=== PATIENT | female | born 1950 | race African-American/Black ===

== ENCOUNTER 2017-10-28 18:53 | Inpatient (IN) ==
[2017-10-28 20:14] LABS: Basophils % 0.2 % (0.0-0.8); Eosinophils # 0.1 10*3/uL (0.0-0.87); Eosinophils % 1.9 % (0.00-10.9); Hematocrit 35.2 VOL% (35.7-47.0); Hemoglobin 11.2 GM/DL (12.0-16.0); Immature Granulocytes % 0.5 %; Immature Granulocytes Absolute 0.02 #; Lymphocytes # 0.7 10*3/uL (1.4-4.0); Lymphocytes % 16.6 % (21.3-54.2); Mean Corpuscular HGB Conc 31.8 GM/DL (32-36); Mean Corpuscular Hemoglobin 29 PG (27-34); Mean Corpuscular Volume 92.1 FL (87-102); Monocytes # 0.4 10*3/uL (0.11-0.8); Monocytes % 8.4 % (1.7-12.7); Neutrophils % 72.4 % (38.7-73.9); Platelet Count 178 T/CUMM (130-400); Red Blood Count 3.82 MC/CUMM (3.8-5.5); White Blood Count 4.2 T/CUMM (4-12)
[2017-10-28 20:43] LABS: Alanine Aminotransferase 21 U/L (13-56); Alkaline Phosphatase 108 U/L (45-117); Aspartate Amino Transferase 20 U/L (0-37); Bilirubin,Total < 0.39 MG/DL (0.2-1.0); Blood Urea Nitrogen 38 MG/DL (7-18); Calcium 7.4 MG/DL (8.5-10.1); Glucose 94 MG/DL (74-106); Osmolality,Calculated 294.8 MOS/KG (273-304); Potassium 3.4 MMOL/L (3.5-5.1); Sodium 144 MMOL/L (136-145); Total Protein 6.4 G/DL (6.4-8.3); Troponin I Only 0.034 NG/ML (0.00-0.045)
[2017-10-28] MEDS ORDERED: FUROSEMIDE 40 MG/4 ML VIAL IV STA (21:20)
[2017-10-28] MEDS ORDERED: FUROSEMIDE 40 MG/4 ML VIAL ONE (21:38)
[2017-10-28] MEDS ORDERED: ONDANSETRON 4 MG/2 ML VIAL IV PRN (21:55)
[2017-10-28] MEDS ORDERED: DEXTROSE 50% 25 GM/50 ML VIAL IV PRN (21:55)
[2017-10-28] MEDS ORDERED: GLUCAGON 1 MG VIAL IM PRN (21:55)
[2017-10-28] MEDS ORDERED: ACETAMINOPHEN 325 MG TABLET PO PRN (21:55)
[2017-10-28] MEDS ORDERED: MORPHINE 2 MG/1 ML SYRINGE IV PRN (21:55)
[2017-10-28] MEDS: glipiZIDE 5 MG TABLET PO SCH (22:30)
[2017-10-28] MEDS: PANTOPRAZOLE 40 MG TABLET PO SCH (22:30)
[2017-10-28] MEDS: CARVEDILOL 25 MG TABLET PO SCH (22:40)
[2017-10-29] MEDS: POTASSIUM CHLORIDE 20 MEQ TABLET PO SCH ×3 (01:08→21:13)
[2017-10-29 01:42] LABS: Apearance,Urine CLEAR (Clear); Bilirubin,Urine Negative (Negative); Blood, Urine Moderate mg/dL (Negative); Glucose,Urine (UA) Negative (Negative); Hyaline Casts,Urine 3 /LPF (0-3); Ketones,Urine Negative (Negative); Mucus,Urine Occasional /LPF (Occasional); Nitrite,Urine Negative (Negative); Protein,Urine 100 MG/DL; RBC,Urine 15 /HPF (0-4); Squamous Epithelial Cell,Urine Occasional /HPF (0-10); Urine Color Straw (Yellow); Urine Specific Gravity 1.008 (1.001-1.035); Urine Urobilinogen < 2.0 EU/DL (0.2-1.0); WBC,Urine 4 /HPF (0-6)
[2017-10-29] MEDS: NITROGLYCERIN SL 0.4 MG TABLET SL PRN ×2 (04:36→04:42)
[2017-10-29 04:54] LABS: Basophils % 0.3 % (0.0-0.8); Eosinophils # 0.1 10*3/uL (0.0-0.87); Eosinophils % 1.6 % (0.00-10.9); Hematocrit 33.6 VOL% (35.7-47.0); Hemoglobin 10.7 GM/DL (12.0-16.0); Immature Granulocytes % 0.3 %; Immature Granulocytes Absolute 0.01 #; Lymphocytes # 0.7 10*3/uL (1.4-4.0); Lymphocytes % 18.6 % (21.3-54.2); Mean Corpuscular HGB Conc 31.8 GM/DL (32-36); Mean Corpuscular Hemoglobin 29 PG (27-34); Mean Corpuscular Volume 91.3 FL (87-102); Mean Platelet Volume 11.2 FL (9.6-12.0); Monocytes # 0.4 10*3/uL (0.11-0.8); Monocytes % 9.9 % (1.7-12.7); Neutrophils # 2.5 10*3/uL (1.4-7.4); Neutrophils % 69.3 % (38.7-73.9); Platelet Count 148 T/CUMM (130-400); Red Blood Count 3.68 MC/CUMM (3.8-5.5); Red Cell Distribution Width 13.9 % (9.3-17.3); White Blood Count 3.7 T/CUMM (4-12)
[2017-10-29 05:27] LABS: Calcium 7.5 MG/DL (8.5-10.1); Osmolality,Calculated 293.8 MOS/KG (273-304); Potassium 3.6 MMOL/L (3.5-5.1)
[2017-10-29] MEDS: INSULIN LISPRO 100 UNIT/ML SUBCUT SCH ×4 (07:56→20:54)
[2017-10-29] MEDS ORDERED: FUROSEMIDE 40 MG/4 ML VIAL IV SCH (08:00)
[2017-10-29] MEDS: glipiZIDE 5 MG TABLET PO SCH ×2 (08:38→21:13)
[2017-10-29] MEDS: ISOSORBIDE MONONITRATE 30 MG TABLET PO SCH (08:38)
[2017-10-29] MEDS: CARVEDILOL 25 MG TABLET PO SCH ×2 (08:38→21:12)
[2017-10-29] MEDS: PANTOPRAZOLE 40 MG TABLET PO SCH ×2 (08:38→21:13)
[2017-10-29] MEDS ORDERED: amLODIPine 5 MG TABLET PO SCH (09:00)
[2017-10-29] MEDS ORDERED: PANTOPRAZOLE 40 MG TABLET PO SCH (09:00)
[2017-10-29] MEDS ORDERED: MAGNESIUM SULF RIDER 4 GM in PREMIX 1 EACH IV PRN (09:44)
[2017-10-29] MEDS ORDERED: MAGNESIUM SULF RIDER 2 GM in PREMIX 1 EACH IV PRN (09:44)
[2017-10-29 13:55] LABS: Troponin I Only 0.037 NG/ML (0.00-0.045)
[2017-10-29] MEDS: ASPIRIN EC 81 MG TABLET PO SCH (14:12)
[2017-10-29] MEDS: FUROSEMIDE 80 MG TABLET PO SCH (16:06)
[2017-10-29] MEDS: MAGNESIUM OXIDE 400 MG TABLET PO SCH ×2 (16:07→21:17)
[2017-10-29] MEDS: ATORVASTATIN 40 MG TABLET PO SCH (21:13)
[2017-10-29] MEDS: hydrALAZINE 25 MG TABLET PO SCH (21:13)
[2017-10-30] MEDS: MAGNESIUM OXIDE 400 MG TABLET PO SCH ×6 (02:25→20:43)
[2017-10-30 05:36] LABS: Basophils % 0.3 % (0.0-0.8); Eosinophils # 0.1 10*3/uL (0.0-0.87); Eosinophils % 1.8 % (0.00-10.9); Hematocrit 33.2 VOL% (35.7-47.0); Hemoglobin 10.3 GM/DL (12.0-16.0); Immature Granulocytes % 0.5 %; Immature Granulocytes Absolute 0.02 #; Lymphocytes # 0.7 10*3/uL (1.4-4.0); Lymphocytes % 17.7 % (21.3-54.2); Mean Corpuscular Hemoglobin 29 PG (27-34); Mean Corpuscular Volume 93.5 FL (87-102); Mean Platelet Volume 11.9 FL (9.6-12.0); Monocytes # 0.4 10*3/uL (0.11-0.8); Monocytes % 10.8 % (1.7-12.7); Neutrophils # 2.7 10*3/uL (1.4-7.4); Neutrophils % 68.9 % (38.7-73.9); Platelet Count 145 T/CUMM (130-400); Red Blood Count 3.55 MC/CUMM (3.8-5.5); Red Cell Distribution Width 13.8 % (9.3-17.3); White Blood Count 3.9 T/CUMM (4-12)
[2017-10-30 06:10] LABS: Calcium 7.4 MG/DL (8.5-10.1); Potassium 3.9 MMOL/L (3.5-5.1)
[2017-10-30 06:20] LABS: Risk Ratio 3.82; VLDL CHOLESTEROL 17.6 MG/DL
[2017-10-30] MEDS: INSULIN LISPRO 100 UNIT/ML SUBCUT SCH ×4 (07:29→20:44)
[2017-10-30] MEDS: CARVEDILOL 25 MG TABLET PO SCH ×2 (08:17→20:42)
[2017-10-30] MEDS: hydrALAZINE 25 MG TABLET PO SCH ×2 (08:18→20:43)
[2017-10-30] MEDS: ISOSORBIDE MONONITRATE 30 MG TABLET PO SCH (08:18)
[2017-10-30] MEDS: ASPIRIN EC 81 MG TABLET PO SCH (08:18)
[2017-10-30] MEDS: glipiZIDE 5 MG TABLET PO SCH (08:18)
[2017-10-30] MEDS: POTASSIUM CHLORIDE 20 MEQ TABLET PO SCH ×2 (08:18→20:42)
[2017-10-30] MEDS: metOLazone 5 MG TABLET PO SCH (08:18)
[2017-10-30] MEDS: PANTOPRAZOLE 40 MG TABLET PO SCH ×2 (08:18→20:43)
[2017-10-30] MEDS: FUROSEMIDE 80 MG TABLET PO SCH (08:18)
[2017-10-30] MEDS: FUROSEMIDE 20 MG TABLET PO SCH ×2 (15:02→20:43)
[2017-10-30] MEDS: ATORVASTATIN 40 MG TABLET PO SCH (21:13)
[2017-10-31] MEDS: MAGNESIUM OXIDE 400 MG TABLET PO SCH ×3 (00:42→09:03)
[2017-10-31 04:51] LABS: Basophils % 0.3 % (0.0-0.8); Eosinophils # 0.1 10*3/uL (0.0-0.87); Eosinophils % 1.3 % (0.00-10.9); Hematocrit 33.2 VOL% (35.7-47.0); Hemoglobin 10.5 GM/DL (12.0-16.0); Immature Granulocytes % 0.3 %; Immature Granulocytes Absolute 0.01 #; Lymphocytes # 0.8 10*3/uL (1.4-4.0); Lymphocytes % 21.1 % (21.3-54.2); Mean Corpuscular HGB Conc 31.6 GM/DL (32-36); Mean Corpuscular Hemoglobin 29 PG (27-34); Mean Corpuscular Volume 92.2 FL (87-102); Mean Platelet Volume 11.8 FL (9.6-12.0); Monocytes # 0.4 10*3/uL (0.11-0.8); Monocytes % 10.9 % (1.7-12.7); Neutrophils # 2.5 10*3/uL (1.4-7.4); Neutrophils % 66.1 % (38.7-73.9); Platelet Count 140 T/CUMM (130-400); Red Cell Distribution Width 13.6 % (9.3-17.3); White Blood Count 3.8 T/CUMM (4-12)
[2017-10-31 05:19] LABS: Calcium 7.7 MG/DL (8.5-10.1); Osmolality,Calculated 293.1 MOS/KG (273-304); Potassium 4.4 MMOL/L (3.5-5.1)
[2017-10-31] MEDS: INSULIN LISPRO 100 UNIT/ML SUBCUT SCH ×4 (08:56→20:55)
[2017-10-31] MEDS: ASPIRIN EC 81 MG TABLET PO SCH (09:03)
[2017-10-31] MEDS: FUROSEMIDE 20 MG TABLET PO SCH (09:03)
[2017-10-31] MEDS: CARVEDILOL 25 MG TABLET PO SCH ×2 (09:03→20:55)
[2017-10-31] MEDS: metOLazone 5 MG TABLET PO SCH (09:03)
[2017-10-31] MEDS: hydrALAZINE 25 MG TABLET PO SCH ×2 (09:03→20:55)
[2017-10-31] MEDS: PANTOPRAZOLE 40 MG TABLET PO SCH ×2 (09:03→20:55)
[2017-10-31] MEDS: ISOSORBIDE MONONITRATE 30 MG TABLET PO SCH (09:03)
[2017-10-31] MEDS: POTASSIUM CHLORIDE 20 MEQ TABLET PO SCH ×2 (09:07→20:55)
[2017-10-31] MEDS: DIPHENOXYLATE/ATROPINE 2.5-0.025 MG TABLET PO PRN (10:45)
[2017-10-31] MEDS ORDERED: MAGNESIUM OXIDE 400 MG TABLET PO SCH (13:00)
[2017-10-31] MEDS: FUROSEMIDE 80 MG TABLET PO SCH (15:56)
[2017-10-31] MEDS: ATORVASTATIN 40 MG TABLET PO SCH (20:55)
[2017-11-01 07:07] LABS: Basophils % 0.3 % (0.0-0.8); Eosinophils # 0.1 10*3/uL (0.0-0.87); Hematocrit 32.4 VOL% (35.7-47.0); Hemoglobin 10.5 GM/DL (12.0-16.0); Immature Granulocytes % 0.3 %; Immature Granulocytes Absolute 0.01 #; Lymphocytes # 0.6 10*3/uL (1.4-4.0); Lymphocytes % 19.1 % (21.3-54.2); Mean Corpuscular HGB Conc 32.4 GM/DL (32-36); Mean Corpuscular Hemoglobin 29 PG (27-34); Mean Corpuscular Volume 90.8 FL (87-102); Monocytes # 0.3 10*3/uL (0.11-0.8); Monocytes % 10.7 % (1.7-12.7); Neutrophils % 67.6 % (38.7-73.9); Platelet Count 136 T/CUMM (130-400); Red Blood Count 3.57 MC/CUMM (3.8-5.5); Red Cell Distribution Width 13.8 % (9.3-17.3)
[2017-11-01 07:44] LABS: Calcium 8.1 MG/DL (8.5-10.1); Osmolality,Calculated 292.3 MOS/KG (273-304); Potassium 5.1 MMOL/L (3.5-5.1)
[2017-11-01] MEDS: INSULIN LISPRO 100 UNIT/ML SUBCUT SCH ×4 (09:29→20:59)
[2017-11-01] MEDS: metOLazone 5 MG TABLET PO SCH (09:29)
[2017-11-01] MEDS: POTASSIUM CHLORIDE 20 MEQ TABLET PO SCH (09:30)
[2017-11-01] MEDS: FUROSEMIDE 80 MG TABLET PO SCH (09:30)
[2017-11-01] MEDS: ISOSORBIDE MONONITRATE 30 MG TABLET PO SCH (09:30)
[2017-11-01] MEDS: PANTOPRAZOLE 40 MG TABLET PO SCH ×2 (09:31→20:58)
[2017-11-01] MEDS: CARVEDILOL 25 MG TABLET PO SCH ×2 (09:31→20:58)
[2017-11-01] MEDS: ASPIRIN EC 81 MG TABLET PO SCH (09:31)
[2017-11-01] MEDS: hydrALAZINE 25 MG TABLET PO SCH ×2 (09:31→20:58)
[2017-11-01] MEDS ORDERED: MORPHINE 4 MG/1 ML VIAL IV PRN (11:17)
[2017-11-01] MEDS: FUROSEMIDE 100 MG/10 ML VIAL IV SCH (17:33)
[2017-11-01] MEDS: ATORVASTATIN 40 MG TABLET PO SCH (20:58)
[2017-11-02 06:02] LABS: Basophils % 0.3 % (0.0-0.8); Eosinophils # 0.1 10*3/uL (0.0-0.87); Eosinophils % 2.5 % (0.00-10.9); Hematocrit 32.5 VOL% (35.7-47.0); Hemoglobin 10.5 GM/DL (12.0-16.0); Immature Granulocytes % 0.3 %; Immature Granulocytes Absolute 0.01 #; Lymphocytes # 0.7 10*3/uL (1.4-4.0); Lymphocytes % 22.6 % (21.3-54.2); Mean Corpuscular HGB Conc 32.3 GM/DL (32-36); Mean Corpuscular Hemoglobin 30 PG (27-34); Mean Corpuscular Volume 91.8 FL (87-102); Mean Platelet Volume 12.2 FL (9.6-12.0); Monocytes # 0.3 10*3/uL (0.11-0.8); Monocytes % 10.5 % (1.7-12.7); Neutrophils % 63.8 % (38.7-73.9); Platelet Count 141 T/CUMM (130-400); Red Blood Count 3.54 MC/CUMM (3.8-5.5); Red Cell Distribution Width 13.6 % (9.3-17.3); White Blood Count 3.1 T/CUMM (4-12)
[2017-11-02 06:09] LABS: Calcium 8.1 MG/DL (8.5-10.1); Osmolality,Calculated 293.4 MOS/KG (273-304); Potassium 4.3 MMOL/L (3.5-5.1)
[2017-11-02] MEDS: metOLazone 5 MG TABLET PO SCH (07:34)
[2017-11-02] MEDS: PANTOPRAZOLE 40 MG TABLET PO SCH ×2 (08:21→20:32)
[2017-11-02] MEDS: hydrALAZINE 25 MG TABLET PO SCH ×2 (08:21→20:32)
[2017-11-02] MEDS: CARVEDILOL 25 MG TABLET PO SCH ×2 (08:21→20:32)
[2017-11-02] MEDS: ASPIRIN EC 81 MG TABLET PO SCH (08:21)
[2017-11-02] MEDS: ISOSORBIDE MONONITRATE 30 MG TABLET PO SCH (08:21)
[2017-11-02] MEDS: FUROSEMIDE 100 MG/10 ML VIAL IV SCH ×2 (08:21→15:56)
[2017-11-02] MEDS: INSULIN LISPRO 100 UNIT/ML SUBCUT SCH ×4 (08:24→20:32)
[2017-11-02] MEDS: DIPHENOXYLATE/ATROPINE 2.5-0.025 MG TABLET PO PRN (10:47)
[2017-11-02] MEDS: ATORVASTATIN 40 MG TABLET PO SCH (20:32)
[2017-11-03 07:04] LABS: Basophils % 0.3 % (0.0-0.8); Eosinophils # 0.1 10*3/uL (0.0-0.87); Eosinophils % 2.9 % (0.00-10.9); Hematocrit 31.5 VOL% (35.7-47.0); Immature Granulocytes % 0.3 %; Immature Granulocytes Absolute 0.01 #; Lymphocytes # 0.7 10*3/uL (1.4-4.0); Lymphocytes % 21.9 % (21.3-54.2); Mean Corpuscular HGB Conc 31.7 GM/DL (32-36); Mean Corpuscular Hemoglobin 29 PG (27-34); Mean Corpuscular Volume 92.6 FL (87-102); Mean Platelet Volume 12.1 FL (9.6-12.0); Monocytes # 0.4 10*3/uL (0.11-0.8); Monocytes % 11.9 % (1.7-12.7); Neutrophils % 62.7 % (38.7-73.9); Platelet Count 135 T/CUMM (130-400); Red Cell Distribution Width 13.8 % (9.3-17.3); White Blood Count 3.1 T/CUMM (4-12)
[2017-11-03 07:32] LABS: Osmolality,Calculated 293.3 MOS/KG (273-304); Potassium 4.1 MMOL/L (3.5-5.1)
[2017-11-03] MEDS: INSULIN LISPRO 100 UNIT/ML SUBCUT SCH ×4 (07:58→20:43)
[2017-11-03] MEDS: ISOSORBIDE MONONITRATE 30 MG TABLET PO SCH (08:59)
[2017-11-03] MEDS: metOLazone 5 MG TABLET PO SCH (08:59)
[2017-11-03] MEDS: FUROSEMIDE 100 MG/10 ML VIAL IV SCH ×2 (08:59→16:56)
[2017-11-03] MEDS: hydrALAZINE 25 MG TABLET PO SCH ×2 (08:59→20:43)
[2017-11-03] MEDS: CARVEDILOL 25 MG TABLET PO SCH ×2 (08:59→20:43)
[2017-11-03] MEDS: PANTOPRAZOLE 40 MG TABLET PO SCH ×2 (08:59→20:43)
[2017-11-03] MEDS: ASPIRIN EC 81 MG TABLET PO SCH (08:59)
[2017-11-03] MEDS: POTASSIUM CHLORIDE 20 MEQ TABLET PO SCH ×2 (09:07→20:43)
[2017-11-03] MEDS: ATORVASTATIN 40 MG TABLET PO SCH (20:43)
[2017-11-04 05:44] LABS: Calcium 8.2 MG/DL (8.5-10.1); Osmolality,Calculated 293.4 MOS/KG (273-304); Potassium 4.2 MMOL/L (3.5-5.1)
[2017-11-04 08:01] VITALS: BP 143/72
[2017-11-04] MEDS: hydrALAZINE 25 MG TABLET PO SCH (08:33)
[2017-11-04] MEDS: PANTOPRAZOLE 40 MG TABLET PO SCH (08:33)
[2017-11-04] MEDS: ISOSORBIDE MONONITRATE 30 MG TABLET PO SCH (08:33)
[2017-11-04] MEDS: ASPIRIN EC 81 MG TABLET PO SCH (08:33)
[2017-11-04] MEDS: POTASSIUM CHLORIDE 20 MEQ TABLET PO SCH (08:33)
[2017-11-04] MEDS: metOLazone 5 MG TABLET PO SCH (08:33)
[2017-11-04] MEDS: FUROSEMIDE 100 MG/10 ML VIAL IV SCH (08:33)
[2017-11-04] MEDS: CARVEDILOL 25 MG TABLET PO SCH (08:33)
[2017-11-04] MEDS: INSULIN LISPRO 100 UNIT/ML SUBCUT SCH (08:34)
[2017-11-04] MEDS ORDERED: MAGNESIUM OXIDE 400 MG TABLET PO ONE (11:00)
== END 2017-11-04 11:05 | disposition home or self-care (01) | DRG 291 ==
LOC: N.ED 18:53 → SUATTDRO 21:53 → N.EDINP 21:53 → N.2E 10-29 00:14
PROVIDERS: ADMIT Internal Medicine

== ENCOUNTER 2018-06-30 17:12 | Inpatient (IN) ==
[2018-06-30] MEDS ORDERED: FUROSEMIDE 100 MG/10 ML VIAL IV STA (18:09)
[2018-06-30 19:07] LABS: Basophils % 0.3 % (0.0-0.8); Eosinophils # 0.1 10*3/uL (0.0-0.87); Eosinophils % 2.3 % (0.00-10.9); Hematocrit 31.7 VOL% (35.7-47.0); Hemoglobin 9.9 GM/DL (12.0-16.0); Immature Granulocytes % 0.3 %; Immature Granulocytes Absolute 0.01 #; Lymphocytes # 0.6 10*3/uL (1.4-4.0); Lymphocytes % 15.6 % (21.3-54.2); Mean Corpuscular HGB Conc 31.2 GM/DL (32-36); Mean Corpuscular Hemoglobin 28 PG (27-34); Mean Corpuscular Volume 91.1 FL (87-102); Monocytes # 0.5 10*3/uL (0.11-0.8); Monocytes % 12.3 % (1.7-12.7); Neutrophils # 2.7 10*3/uL (1.4-7.4); Neutrophils % 69.2 % (38.7-73.9); Platelet Count 158 T/CUMM (130-400); Red Blood Count 3.48 MC/CUMM (3.8-5.5); Red Cell Distribution Width 14.5 % (9.3-17.3); White Blood Count 3.9 T/CUMM (4-12)
[2018-06-30 19:30] LABS: Alanine Aminotransferase 13 U/L (13-56); Albumin 2.9 G/DL (3.4-5.0); Alkaline Phosphatase 108 U/L (45-117); Aspartate Amino Transferase 21 U/L (0-37); Blood Urea Nitrogen 46 MG/DL (7-18); Glucose 96 MG/DL (74-106); Osmolality,Calculated 301.6 MOS/KG (273-304); Potassium 3.7 MMOL/L (3.5-5.1); Sodium 146 MMOL/L (136-145)
[2018-06-30 19:49] LABS: Calcium < 5.0 MG/DL (8.5-10.1)
[2018-06-30] MEDS ORDERED: ONDANSETRON 4 MG/2 ML VIAL IV PRN (20:23)
[2018-06-30] MEDS ORDERED: GLUCAGON 1 MG VIAL IM PRN (20:23)
[2018-06-30] MEDS ORDERED: DEXTROSE 50% 25 GM/50 ML VIAL IV PRN (20:23)
[2018-06-30] MEDS ORDERED: CALCIUM GLUCONATE 2,000 MG in SODIUM CHLORIDE 0.9% 100 ML IV ONE (23:39)
[2018-06-30] MEDS ORDERED: MAGNESIUM SULF RIDER 2 GM in PREMIX 1 EACH IV ONE (23:40)
[2018-07-01] MEDS: INSULIN LISPRO 100 UNIT/ML SUBCUT SCH ×4 (00:05→17:14)
[2018-07-01] MEDS: ALBUTEROL/IPRATROPIUM 3 ML NEB RESP TX SCH ×6 (02:20→23:50)
[2018-07-01] MEDS: HEPARIN 5,000 UNIT/1 ML VIAL SUBCUT SCH ×3 (02:50→17:42)
[2018-07-01 05:47] LABS: Basophils % 0.3 % (0.0-0.8); Eosinophils # 0.1 10*3/uL (0.0-0.87); Eosinophils % 3.6 % (0.00-10.9); Hematocrit 31.6 VOL% (35.7-47.0); Hemoglobin 9.5 GM/DL (12.0-16.0); Immature Granulocytes % 0.3 %; Immature Granulocytes Absolute 0.01 #; Lymphocytes # 0.7 10*3/uL (1.4-4.0); Lymphocytes % 19.9 % (21.3-54.2); Mean Corpuscular HGB Conc 30.1 GM/DL (32-36); Mean Corpuscular Hemoglobin 27 PG (27-34); Mean Corpuscular Volume 91.1 FL (87-102); Mean Platelet Volume 11.6 FL (9.6-12.0); Monocytes # 0.4 10*3/uL (0.11-0.8); Monocytes % 11.3 % (1.7-12.7); Neutrophils # 2.2 10*3/uL (1.4-7.4); Neutrophils % 64.6 % (38.7-73.9); Platelet Count 159 T/CUMM (130-400); Red Blood Count 3.47 MC/CUMM (3.8-5.5); Red Cell Distribution Width 14.6 % (9.3-17.3); White Blood Count 3.4 T/CUMM (4-12)
[2018-07-01 06:26] LABS: Blood Urea Nitrogen 42 MG/DL (7-18); Glucose 83 MG/DL (74-106); Osmolality,Calculated 295.8 MOS/KG (273-304); Potassium 3.2 MMOL/L (3.5-5.1); Sodium 144 MMOL/L (136-145)
[2018-07-01 06:28] LABS: Calcium < 5.0 MG/DL (8.5-10.1)
[2018-07-01] MEDS: POTASSIUM CHLORIDE 20 MEQ TABLET PO PRN ×4 (07:33→14:07)
[2018-07-01] MEDS ORDERED: FUROSEMIDE 40 MG/4 ML VIAL IV SCH (09:00)
[2018-07-01] MEDS ORDERED: BUMETANIDE 1 MG TABLET PO SCH (09:00)
[2018-07-01] MEDS: CARVEDILOL 3.125 MG TABLET PO SCH ×2 (10:03→20:57)
[2018-07-01] MEDS: ASPIRIN EC 81 MG TABLET PO SCH (10:03)
[2018-07-01] MEDS: COLESTIPOL 1 GM TABLET PO SCH ×2 (10:03→20:56)
[2018-07-01] MEDS: CALCIUM CARBONATE CHEW 500 MG TABLET PO SCH ×2 (10:03→20:56)
[2018-07-01] MEDS: PANTOPRAZOLE 40 MG TABLET PO SCH (10:04)
[2018-07-01] MEDS: FUROSEMIDE 40 MG/4 ML VIAL IV SCH ×2 (10:04→17:41)
[2018-07-01] MEDS ORDERED: MAGNESIUM SULF RIDER 2 GM in PREMIX 1 EACH IV ONE (15:09)
[2018-07-01] MEDS ORDERED: ERGOCALCIFEROL 50,000 UNIT CAPSULE PO SCH (15:30)
[2018-07-01] MEDS ORDERED: CALCIUM GLUCONATE 2,000 MG in SODIUM CHLORIDE 0.9% 100 ML IV ONE (17:00)
[2018-07-01] MEDS: ATORVASTATIN 40 MG TABLET PO SCH (20:56)
[2018-07-01] MEDS: hydrALAZINE 25 MG TABLET PO SCH (20:57)
[2018-07-01] MEDS ORDERED: amLODIPine 10 MG TABLET PO SCH (21:00)
[2018-07-01] MEDS ORDERED: DIPHENOXYLATE/ATROPINE 2.5-0.025 MG TABLET PO PRN (21:04)
[2018-07-02] MEDS: HEPARIN 5,000 UNIT/1 ML VIAL SUBCUT SCH ×3 (02:05→16:56)
[2018-07-02] MEDS: INSULIN LISPRO 100 UNIT/ML SUBCUT SCH ×5 (02:09→22:16)
[2018-07-02] MEDS: ALBUTEROL/IPRATROPIUM 3 ML NEB RESP TX SCH ×6 (03:40→23:45)
[2018-07-02 04:47] LABS: Basophils % 0.5 % (0.0-0.8); Eosinophils # 0.1 10*3/uL (0.0-0.87); Eosinophils % 3.5 % (0.00-10.9); Hematocrit 34.7 VOL% (35.7-47.0); Hemoglobin 10.3 GM/DL (12.0-16.0); Immature Granulocytes % 0.5 %; Immature Granulocytes Absolute 0.02 #; Lymphocytes # 0.6 10*3/uL (1.4-4.0); Lymphocytes % 16.1 % (21.3-54.2); Mean Corpuscular HGB Conc 29.7 GM/DL (32-36); Mean Corpuscular Hemoglobin 28 PG (27-34); Mean Corpuscular Volume 94.3 FL (87-102); Mean Platelet Volume 11.6 FL (9.6-12.0); Monocytes # 0.4 10*3/uL (0.11-0.8); Monocytes % 9.4 % (1.7-12.7); Neutrophils # 2.6 10*3/uL (1.4-7.4); Platelet Count 160 T/CUMM (130-400); Red Blood Count 3.68 MC/CUMM (3.8-5.5); Red Cell Distribution Width 14.6 % (9.3-17.3); White Blood Count 3.7 T/CUMM (4-12)
[2018-07-02 06:42] LABS: Osmolality,Calculated 297.8 MOS/KG (273-304)
[2018-07-02 06:43] LABS: Calcium 5.1 MG/DL (8.5-10.1)
[2018-07-02] MEDS: ISOSORBIDE MONONITRATE 30 MG TABLET PO SCH (09:24)
[2018-07-02] MEDS: hydrALAZINE 25 MG TABLET PO SCH ×2 (09:24→22:19)
[2018-07-02] MEDS: CARVEDILOL 3.125 MG TABLET PO SCH ×2 (09:24→22:19)
[2018-07-02] MEDS: COLESTIPOL 1 GM TABLET PO SCH ×2 (09:24→22:19)
[2018-07-02] MEDS: CALCIUM CARBONATE CHEW 500 MG TABLET PO SCH ×2 (09:24→22:18)
[2018-07-02] MEDS: PANTOPRAZOLE 40 MG TABLET PO SCH (09:25)
[2018-07-02] MEDS: ASPIRIN EC 81 MG TABLET PO SCH (09:25)
[2018-07-02] MEDS ORDERED: FUROSEMIDE 40 MG/4 ML VIAL IV ONE (09:52)
[2018-07-02] MEDS ORDERED: SPIRONOLACTONE 25 MG TABLET PO SCH (10:00)
[2018-07-02] MEDS: FUROSEMIDE 40 MG/4 ML VIAL IV SCH ×2 (10:21→16:16)
[2018-07-02] MEDS: MAGNESIUM SULF RIDER 4 GM in PREMIX 1 EACH IV PRN (10:40)
[2018-07-02] MEDS: ATORVASTATIN 40 MG TABLET PO SCH (22:19)
[2018-07-03] MEDS: HEPARIN 5,000 UNIT/1 ML VIAL SUBCUT SCH ×3 (00:59→17:23)
[2018-07-03] MEDS: ALBUTEROL/IPRATROPIUM 3 ML NEB RESP TX SCH ×5 (03:27→19:52)
[2018-07-03 06:26] LABS: Osmolality,Calculated 289.3 MOS/KG (273-304); Potassium 3.8 MMOL/L (3.5-5.1)
[2018-07-03 06:29] LABS: Calcium 5.3 MG/DL (8.5-10.1)
[2018-07-03] MEDS: guaiFENesin/CODEINE 5 ML LIQUID PO PRN ×2 (06:53→23:01)
[2018-07-03] MEDS: INSULIN LISPRO 100 UNIT/ML SUBCUT SCH ×4 (08:11→20:15)
[2018-07-03] MEDS: FUROSEMIDE 40 MG/4 ML VIAL IV SCH ×2 (08:54→16:46)
[2018-07-03] MEDS: CARVEDILOL 3.125 MG TABLET PO SCH ×2 (09:06→21:50)
[2018-07-03] MEDS: hydrALAZINE 25 MG TABLET PO SCH ×2 (09:06→21:50)
[2018-07-03] MEDS: ASPIRIN EC 81 MG TABLET PO SCH (09:06)
[2018-07-03] MEDS: CALCIUM CARBONATE CHEW 500 MG TABLET PO SCH ×3 (09:06→21:50)
[2018-07-03] MEDS: ISOSORBIDE MONONITRATE 30 MG TABLET PO SCH (09:06)
[2018-07-03] MEDS: PANTOPRAZOLE 40 MG TABLET PO SCH (09:06)
[2018-07-03] MEDS: CALCITRIOL 0.5 MCG CAPSULE PO SCH (09:08)
[2018-07-03] MEDS: COLESTIPOL 1 GM TABLET PO SCH ×2 (09:09→21:49)
[2018-07-03] MEDS: MAGNESIUM SULF RIDER 4 GM in PREMIX 1 EACH IV PRN (11:44)
[2018-07-03] MEDS: ATORVASTATIN 40 MG TABLET PO SCH (21:49)
[2018-07-04] MEDS: ALBUTEROL/IPRATROPIUM 3 ML NEB RESP TX SCH ×7 (00:07→22:35)
[2018-07-04] MEDS: HEPARIN 5,000 UNIT/1 ML VIAL SUBCUT SCH ×3 (00:50→17:08)
[2018-07-04 05:19] LABS: Potassium 3.7 MMOL/L (3.5-5.1)
[2018-07-04 05:26] LABS: Calcium 5.8 MG/DL (8.5-10.1)
[2018-07-04] MEDS ORDERED: ACETAMINOPHEN 325 MG TABLET PO PRN (09:02)
[2018-07-04] MEDS: FUROSEMIDE 40 MG/4 ML VIAL IV SCH ×3 (09:42→15:28)
[2018-07-04] MEDS: INSULIN LISPRO 100 UNIT/ML SUBCUT SCH ×4 (09:49→22:50)
[2018-07-04] MEDS: PANTOPRAZOLE 40 MG TABLET PO SCH (09:49)
[2018-07-04] MEDS: ASPIRIN EC 81 MG TABLET PO SCH (09:49)
[2018-07-04] MEDS: hydrALAZINE 25 MG TABLET PO SCH ×2 (09:49→22:50)
[2018-07-04] MEDS: CARVEDILOL 3.125 MG TABLET PO SCH ×2 (09:49→22:49)
[2018-07-04] MEDS: ISOSORBIDE MONONITRATE 30 MG TABLET PO SCH (09:49)
[2018-07-04] MEDS: CALCIUM CARBONATE CHEW 500 MG TABLET PO SCH ×3 (09:49→22:49)
[2018-07-04] MEDS: COLESTIPOL 1 GM TABLET PO SCH ×2 (09:52→22:49)
[2018-07-04] MEDS: CALCITRIOL 0.5 MCG CAPSULE PO SCH (09:52)
[2018-07-04] MEDS ORDERED: CALCIUM GLUCONATE 2,000 MG in SODIUM CHLORIDE 0.9% 100 ML IV ONE (15:27)
[2018-07-04] MEDS: MAGNESIUM SULF RIDER 2 GM in PREMIX 1 EACH IV PRN (15:42)
[2018-07-04] MEDS: ATORVASTATIN 40 MG TABLET PO SCH (22:49)
[2018-07-05] MEDS: HEPARIN 5,000 UNIT/1 ML VIAL SUBCUT SCH ×3 (00:20→16:10)
[2018-07-05] MEDS: ALBUTEROL/IPRATROPIUM 3 ML NEB RESP TX SCH ×6 (02:40→23:49)
[2018-07-05 04:43] LABS: Calcium 6.5 MG/DL (8.5-10.1); Osmolality,Calculated 291.1 MOS/KG (273-304); Potassium 3.7 MMOL/L (3.5-5.1)
[2018-07-05] MEDS: INSULIN LISPRO 100 UNIT/ML SUBCUT SCH ×4 (07:45→21:31)
[2018-07-05] MEDS: ASPIRIN EC 81 MG TABLET PO SCH (08:57)
[2018-07-05] MEDS: FUROSEMIDE 40 MG/4 ML VIAL IV SCH ×2 (08:57→15:34)
[2018-07-05] MEDS: CALCIUM CARBONATE CHEW 500 MG TABLET PO SCH ×3 (08:57→21:30)
[2018-07-05] MEDS: ISOSORBIDE MONONITRATE 30 MG TABLET PO SCH (08:58)
[2018-07-05] MEDS: CARVEDILOL 3.125 MG TABLET PO SCH ×2 (08:58→21:30)
[2018-07-05] MEDS: hydrALAZINE 25 MG TABLET PO SCH ×2 (08:58→21:30)
[2018-07-05] MEDS: CALCITRIOL 0.5 MCG CAPSULE PO SCH (08:58)
[2018-07-05] MEDS: PANTOPRAZOLE 40 MG TABLET PO SCH (08:58)
[2018-07-05] MEDS: COLESTIPOL 1 GM TABLET PO SCH ×2 (08:58→21:30)
[2018-07-05] MEDS: MAGNESIUM SULF RIDER 2 GM in PREMIX 1 EACH IV PRN (13:26)
[2018-07-05] MEDS: ATORVASTATIN 40 MG TABLET PO SCH (21:30)
[2018-07-06] MEDS: HEPARIN 5,000 UNIT/1 ML VIAL SUBCUT SCH ×3 (01:15→17:19)
[2018-07-06] MEDS: ALBUTEROL/IPRATROPIUM 3 ML NEB RESP TX SCH ×6 (03:49→23:53)
[2018-07-06 05:54] LABS: Calcium 7.3 MG/DL (8.5-10.1); Osmolality,Calculated 287.3 MOS/KG (273-304); Potassium 3.9 MMOL/L (3.5-5.1)
[2018-07-06] MEDS: INSULIN LISPRO 100 UNIT/ML SUBCUT SCH ×4 (09:19→22:48)
[2018-07-06] MEDS: hydrALAZINE 25 MG TABLET PO SCH ×2 (09:20→20:43)
[2018-07-06] MEDS: ASPIRIN EC 81 MG TABLET PO SCH (09:20)
[2018-07-06] MEDS: CALCITRIOL 0.5 MCG CAPSULE PO SCH (09:20)
[2018-07-06] MEDS: ISOSORBIDE MONONITRATE 30 MG TABLET PO SCH (09:20)
[2018-07-06] MEDS: COLESTIPOL 1 GM TABLET PO SCH ×2 (09:20→20:43)
[2018-07-06] MEDS: FUROSEMIDE 40 MG/4 ML VIAL IV SCH ×2 (09:20→15:40)
[2018-07-06] MEDS: CALCIUM CARBONATE CHEW 500 MG TABLET PO SCH ×3 (09:20→20:43)
[2018-07-06] MEDS: PANTOPRAZOLE 40 MG TABLET PO SCH (09:20)
[2018-07-06] MEDS: CARVEDILOL 3.125 MG TABLET PO SCH ×2 (09:20→20:43)
[2018-07-06] MEDS: MAGNESIUM SULF RIDER 2 GM in PREMIX 1 EACH IV PRN (11:25)
[2018-07-06] MEDS: ATORVASTATIN 40 MG TABLET PO SCH (20:43)
[2018-07-07] MEDS: HEPARIN 5,000 UNIT/1 ML VIAL SUBCUT SCH ×2 (01:05→09:45)
[2018-07-07] MEDS: ALBUTEROL/IPRATROPIUM 3 ML NEB RESP TX SCH ×3 (04:18→10:47)
[2018-07-07 05:00] LABS: Basophils % 0.3 % (0.0-0.8); Eosinophils # 0.1 10*3/uL (0.0-0.87); Eosinophils % 2.3 % (0.00-10.9); Hematocrit 29.2 VOL% (35.7-47.0); Hemoglobin 9.1 GM/DL (12.0-16.0); Immature Granulocytes % 0.6 %; Immature Granulocytes Absolute 0.02 #; Lymphocytes # 0.5 10*3/uL (1.4-4.0); Lymphocytes % 14.6 % (21.3-54.2); Mean Corpuscular HGB Conc 31.2 GM/DL (32-36); Mean Corpuscular Hemoglobin 28 PG (27-34); Mean Corpuscular Volume 90.4 FL (87-102); Mean Platelet Volume 11.2 FL (9.6-12.0); Monocytes # 0.5 10*3/uL (0.11-0.8); Monocytes % 13.1 % (1.7-12.7); Neutrophils # 2.4 10*3/uL (1.4-7.4); Neutrophils % 69.1 % (38.7-73.9); Platelet Count 153 T/CUMM (130-400); Red Blood Count 3.23 MC/CUMM (3.8-5.5); Red Cell Distribution Width 14.4 % (9.3-17.3); White Blood Count 3.5 T/CUMM (4-12)
[2018-07-07 05:26] LABS: Calcium 7.8 MG/DL (8.5-10.1); Osmolality,Calculated 290.1 MOS/KG (273-304); Potassium 3.9 MMOL/L (3.5-5.1)
[2018-07-07] MEDS: MAGNESIUM SULF RIDER 4 GM in PREMIX 1 EACH IV PRN (09:26)
[2018-07-07] MEDS: FUROSEMIDE 40 MG/4 ML VIAL IV SCH (09:27)
[2018-07-07] MEDS: COLESTIPOL 1 GM TABLET PO SCH (09:39)
[2018-07-07] MEDS: INSULIN LISPRO 100 UNIT/ML SUBCUT SCH ×2 (09:39→11:32)
[2018-07-07] MEDS: hydrALAZINE 25 MG TABLET PO SCH (09:40)
[2018-07-07] MEDS: ISOSORBIDE MONONITRATE 30 MG TABLET PO SCH (09:40)
[2018-07-07] MEDS: CALCITRIOL 0.5 MCG CAPSULE PO SCH (09:40)
[2018-07-07] MEDS: PANTOPRAZOLE 40 MG TABLET PO SCH (09:40)
[2018-07-07] MEDS: CALCIUM CARBONATE CHEW 500 MG TABLET PO SCH (09:40)
[2018-07-07] MEDS: CARVEDILOL 3.125 MG TABLET PO SCH (09:40)
[2018-07-07] MEDS: ASPIRIN EC 81 MG TABLET PO SCH (09:44)
[2018-07-07] MEDS ORDERED: MAGNESIUM OXIDE 400 MG TABLET PO SCH (12:00)
[2018-07-07 12:55] VITALS: BP 123/63
== END 2018-07-07 16:50 | disposition home health service (06) | DRG 291 ==
LOC: N.ED 17:12 → N.EDINP 17:12 → N.TELES 20:59 → SUATTDRO 07-01 08:44
PROVIDERS: ADMIT Internal Medicine; ATTEND Internal Medicine

== ENCOUNTER 2018-08-17 23:29 | Inpatient (IN) ==
[2018-08-18 00:49] LABS: Basophils % 0.3 % (0.0-0.8); Eosinophils # 0.1 10*3/uL (0.0-0.87); Eosinophils % 1.8 % (0.00-10.9); Hematocrit 30.8 VOL% (35.7-47.0); Hemoglobin 9.8 GM/DL (12.0-16.0); Immature Granulocytes % 0.8 %; Immature Granulocytes Absolute 0.03 #; Lymphocytes # 0.5 10*3/uL (1.4-4.0); Lymphocytes % 13.7 % (21.3-54.2); Mean Corpuscular HGB Conc 31.8 GM/DL (32-36); Mean Corpuscular Hemoglobin 29 PG (27-34); Mean Corpuscular Volume 89.5 FL (87-102); Mean Platelet Volume 12.2 FL (9.6-12.0); Monocytes # 0.4 10*3/uL (0.11-0.8); Monocytes % 11.1 % (1.7-12.7); Neutrophils # 2.7 10*3/uL (1.4-7.4); Neutrophils % 72.3 % (38.7-73.9); Platelet Count 169 T/CUMM (130-400); Red Blood Count 3.44 MC/CUMM (3.8-5.5); Red Cell Distribution Width 14.8 % (9.3-17.3); White Blood Count 3.8 T/CUMM (4-12)
[2018-08-18 01:12] LABS: Alanine Aminotransferase 16 U/L (13-56); Albumin 3.1 G/DL (3.4-5.0); Alkaline Phosphatase 112 U/L (45-117); Aspartate Amino Transferase 26 U/L (0-37); Blood Urea Nitrogen 44 MG/DL (7-18); Calcium 8.5 MG/DL (8.5-10.1); Glucose 102 MG/DL (74-106); Osmolality,Calculated 289.4 MOS/KG (273-304); Potassium 4.6 MMOL/L (3.5-5.1); Sodium 140 MMOL/L (136-145); Total Protein 7.1 G/DL (6.4-8.3); Troponin I 0.027 NG/ML (0.00-0.045)
[2018-08-18] MEDS ORDERED: FUROSEMIDE 40 MG/4 ML VIAL IV STA (01:38)
[2018-08-18] MEDS ORDERED: ONDANSETRON 4 MG/2 ML VIAL IV PRN (02:16)
[2018-08-18] MEDS ORDERED: ACETAMINOPHEN 325 MG TABLET PO PRN (02:16)
[2018-08-18] MEDS ORDERED: MAGNESIUM SULF RIDER 4 GM in PREMIX 1 EACH IV PRN (02:16)
[2018-08-18] MEDS ORDERED: GLUCAGON 1 MG VIAL IM PRN (02:16)
[2018-08-18] MEDS ORDERED: DEXTROSE 50% 25 GM/50 ML SYRINGE IV PRN (02:16)
[2018-08-18] MEDS ORDERED: MAGNESIUM SULF RIDER 2 GM in PREMIX 1 EACH IV PRN (02:16)
[2018-08-18] MEDS: CALCITRIOL 0.5 MCG CAPSULE PO SCH ×2 (06:00→09:54)
[2018-08-18] MEDS: hydrALAZINE 25 MG TABLET PO SCH ×4 (06:00→21:10)
[2018-08-18] MEDS: CARVEDILOL 3.125 MG TABLET PO SCH ×4 (06:00→21:10)
[2018-08-18 07:40] LABS: Basophils % 0.2 % (0.0-0.8); Eosinophils # 0.1 10*3/uL (0.0-0.87); Eosinophils % 1.2 % (0.00-10.9); Hematocrit 31.7 VOL% (35.7-47.0); Immature Granulocytes % 0.5 %; Immature Granulocytes Absolute 0.02 #; Lymphocytes # 0.5 10*3/uL (1.4-4.0); Lymphocytes % 11.5 % (21.3-54.2); Mean Corpuscular HGB Conc 31.5 GM/DL (32-36); Mean Corpuscular Hemoglobin 28 PG (27-34); Mean Corpuscular Volume 90.1 FL (87-102); Mean Platelet Volume 11.6 FL (9.6-12.0); Monocytes # 0.4 10*3/uL (0.11-0.8); Monocytes % 10.3 % (1.7-12.7); Neutrophils # 3.2 10*3/uL (1.4-7.4); Neutrophils % 76.3 % (38.7-73.9); Platelet Count 176 T/CUMM (130-400); Red Blood Count 3.52 MC/CUMM (3.8-5.5); White Blood Count 4.2 T/CUMM (4-12)
[2018-08-18 08:09] LABS: Albumin 3.1 G/DL (3.4-5.0); Bilirubin,Total 0.6 MG/DL (0.2-1.0); Calcium 8.5 MG/DL (8.5-10.1); Osmolality,Calculated 289.4 MOS/KG (273-304); Potassium 3.7 MMOL/L (3.5-5.1)
[2018-08-18] MEDS: PANTOPRAZOLE 40 MG TABLET PO SCH (09:54)
[2018-08-18] MEDS: CHOLESTYRAMINE 4 GM PACK PO SCH ×2 (09:54→21:10)
[2018-08-18] MEDS: ENOXAPARIN 30 MG/0.3 ML SYRINGE SUBCUT SCH (10:11)
[2018-08-18] MEDS: FUROSEMIDE 40 MG/4 ML VIAL IV SCH ×2 (10:12→15:00)
[2018-08-18] MEDS: COLESTIPOL 1 GM TABLET PO SCH ×2 (13:18→21:10)
[2018-08-18] MEDS ORDERED: NITROGLYCERIN SL 0.4 MG TABLET SL PRN (16:59)
[2018-08-18] MEDS: MAGNESIUM OXIDE 400 MG TABLET PO SCH (21:10)
[2018-08-18] MEDS: ATORVASTATIN 40 MG TABLET PO SCH (21:10)
[2018-08-18] MEDS: CALCIUM CARBONATE CHEW 500 MG TABLET PO SCH (21:10)
[2018-08-19 05:26] LABS: Basophils % 0.3 % (0.0-0.8); Eosinophils # 0.1 10*3/uL (0.0-0.87); Eosinophils % 1.8 % (0.00-10.9); Hematocrit 30.1 VOL% (35.7-47.0); Hemoglobin 9.4 GM/DL (12.0-16.0); Immature Granulocytes % 0.5 %; Immature Granulocytes Absolute 0.02 #; Lymphocytes # 0.6 10*3/uL (1.4-4.0); Lymphocytes % 14.5 % (21.3-54.2); Mean Corpuscular HGB Conc 31.2 GM/DL (32-36); Mean Corpuscular Hemoglobin 28 PG (27-34); Mean Corpuscular Volume 89.9 FL (87-102); Mean Platelet Volume 11.9 FL (9.6-12.0); Monocytes # 0.5 10*3/uL (0.11-0.8); Monocytes % 11.9 % (1.7-12.7); Neutrophils # 2.7 10*3/uL (1.4-7.4); Platelet Count 179 T/CUMM (130-400); Red Blood Count 3.35 MC/CUMM (3.8-5.5); Red Cell Distribution Width 14.7 % (9.3-17.3); White Blood Count 3.8 T/CUMM (4-12)
[2018-08-19 05:50] LABS: Calcium 8.4 MG/DL (8.5-10.1); Osmolality,Calculated 288.4 MOS/KG (273-304); Potassium 3.7 MMOL/L (3.5-5.1)
[2018-08-19] MEDS: COLESTIPOL 1 GM TABLET PO SCH ×2 (10:07→21:20)
[2018-08-19] MEDS: MAGNESIUM OXIDE 400 MG TABLET PO SCH ×2 (10:07→21:20)
[2018-08-19] MEDS: PANTOPRAZOLE 40 MG TABLET PO SCH (10:07)
[2018-08-19] MEDS: hydrALAZINE 25 MG TABLET PO SCH ×2 (10:07→21:20)
[2018-08-19] MEDS: CALCIUM CARBONATE CHEW 500 MG TABLET PO SCH ×3 (10:08→21:20)
[2018-08-19] MEDS: CHOLESTYRAMINE 4 GM PACK PO SCH ×2 (10:08→21:21)
[2018-08-19] MEDS: ASPIRIN EC 81 MG TABLET PO SCH (10:08)
[2018-08-19] MEDS: ISOSORBIDE MONONITRATE 30 MG TABLET PO SCH (10:08)
[2018-08-19] MEDS: CARVEDILOL 3.125 MG TABLET PO SCH ×3 (10:08→21:26)
[2018-08-19] MEDS: CALCITRIOL 0.5 MCG CAPSULE PO SCH (10:08)
[2018-08-19] MEDS ORDERED: LOPERAMIDE 2 MG CAPSULE PO PRN (10:09)
[2018-08-19] MEDS: FUROSEMIDE 40 MG/4 ML VIAL IV SCH ×2 (10:26→16:21)
[2018-08-19] MEDS: ENOXAPARIN 30 MG/0.3 ML SYRINGE SUBCUT SCH (11:00)
[2018-08-19] MEDS: ATORVASTATIN 40 MG TABLET PO SCH (21:20)
[2018-08-20 04:25] LABS: Eosinophils # 0.1 10*3/uL (0.0-0.87); Eosinophils % 1.9 % (0.00-10.9); Hematocrit 28.5 VOL% (35.7-47.0); Hemoglobin 8.7 GM/DL (12.0-16.0); Immature Granulocytes % 0.3 %; Immature Granulocytes Absolute 0.01 #; Lymphocytes # 0.6 10*3/uL (1.4-4.0); Lymphocytes % 19.6 % (21.3-54.2); Mean Corpuscular HGB Conc 30.5 GM/DL (32-36); Mean Corpuscular Hemoglobin 27 PG (27-34); Mean Corpuscular Volume 89.9 FL (87-102); Monocytes # 0.4 10*3/uL (0.11-0.8); Monocytes % 13.1 % (1.7-12.7); Neutrophils # 2.1 10*3/uL (1.4-7.4); Neutrophils % 65.1 % (38.7-73.9); Platelet Count 168 T/CUMM (130-400); Red Blood Count 3.17 MC/CUMM (3.8-5.5); Red Cell Distribution Width 14.6 % (9.3-17.3); White Blood Count 3.2 T/CUMM (4-12)
[2018-08-20 04:51] LABS: Calcium 8.1 MG/DL (8.5-10.1); Osmolality,Calculated 287.4 MOS/KG (273-304); Potassium 3.5 MMOL/L (3.5-5.1)
[2018-08-20] MEDS: CARVEDILOL 3.125 MG TABLET PO SCH ×2 (08:46→21:14)
[2018-08-20] MEDS: CALCITRIOL 0.5 MCG CAPSULE PO SCH (08:46)
[2018-08-20] MEDS: CALCIUM CARBONATE CHEW 500 MG TABLET PO SCH ×3 (08:46→21:13)
[2018-08-20] MEDS: ASPIRIN EC 81 MG TABLET PO SCH (08:46)
[2018-08-20] MEDS: COLESTIPOL 1 GM TABLET PO SCH ×2 (08:46→21:14)
[2018-08-20] MEDS: hydrALAZINE 25 MG TABLET PO SCH ×2 (08:46→21:14)
[2018-08-20] MEDS: ISOSORBIDE MONONITRATE 30 MG TABLET PO SCH (08:46)
[2018-08-20] MEDS: PANTOPRAZOLE 40 MG TABLET PO SCH (08:46)
[2018-08-20] MEDS: MAGNESIUM OXIDE 400 MG TABLET PO SCH ×2 (08:46→21:14)
[2018-08-20] MEDS: ENOXAPARIN 30 MG/0.3 ML SYRINGE SUBCUT SCH (08:46)
[2018-08-20] MEDS: CHOLESTYRAMINE 4 GM PACK PO SCH ×2 (08:47→21:14)
[2018-08-20] MEDS: FUROSEMIDE 40 MG/4 ML VIAL IV SCH ×2 (08:47→15:38)
[2018-08-20] MEDS: ATORVASTATIN 40 MG TABLET PO SCH (21:14)
[2018-08-21] MEDS ORDERED: FUROSEMIDE 80 MG TABLET PO SCH (08:00)
[2018-08-21 08:29] VITALS: BP 147/77
[2018-08-21] MEDS: hydrALAZINE 25 MG TABLET PO SCH (09:03)
[2018-08-21] MEDS: CALCITRIOL 0.5 MCG CAPSULE PO SCH (09:03)
[2018-08-21] MEDS: CHOLESTYRAMINE 4 GM PACK PO SCH (09:04)
[2018-08-21] MEDS: CARVEDILOL 3.125 MG TABLET PO SCH (09:04)
[2018-08-21] MEDS: PANTOPRAZOLE 40 MG TABLET PO SCH (09:04)
[2018-08-21] MEDS: COLESTIPOL 1 GM TABLET PO SCH (09:04)
[2018-08-21] MEDS: MAGNESIUM OXIDE 400 MG TABLET PO SCH (09:04)
[2018-08-21] MEDS: ISOSORBIDE MONONITRATE 30 MG TABLET PO SCH (09:04)
[2018-08-21] MEDS: ENOXAPARIN 30 MG/0.3 ML SYRINGE SUBCUT SCH (09:04)
[2018-08-21] MEDS: ASPIRIN EC 81 MG TABLET PO SCH (09:04)
[2018-08-21] MEDS: CALCIUM CARBONATE CHEW 500 MG TABLET PO SCH (09:04)
== END 2018-08-21 11:43 | disposition swing bed (61) | DRG 291 ==
LOC: N.ED 23:29 → N.EDINP 08-18 02:16 → N.TELES 08-18 02:45
PROVIDERS: ADMIT Hospitalist; ATTEND Hospitalist

== ENCOUNTER 2021-01-20 13:36 | Inpatient (IN) ==
[2021-01-20] MEDS ORDERED: SODIUM CHLORIDE 0.9% 500 ML IV STA (14:23)
[2021-01-20] MEDS ORDERED: PANTOPRAZOLE 40 MG VIAL IV STA (16:21)
[2021-01-20 16:22] LABS: Alanine Aminotransferase < 9 U/L (13-56); Albumin 2.5 G/DL (3.4-5.0); Alkaline Phosphatase 103 U/L (45-117); Aspartate Amino Transferase 12 U/L (0-37); Bilirubin,Total < 0.39 MG/DL (0.2-1.0); Blood Urea Nitrogen 103 MG/DL (7-18); Carbon Dioxide 20 MMOL/L (21-32); Estimated Glom Filtration Rate 13 ML/MIN; Glucose 146 MG/DL (74-106); Osmolality,Calculated 311.5 MOS/KG (273-304); Potassium 3.4 MMOL/L (3.5-5.1); Sodium 139 MMOL/L (136-145); Total Protein 6.4 G/DL (6.4-8.2)
[2021-01-20 16:23] LABS: Basophils % 0.1 % (0.0-0.8); Hematocrit 18.4 VOL% (35.7-47.0); Immature Granulocytes % 1.4 %; Immature Granulocytes Absolute 0.28 #; Lymphocytes # 0.8 10*3/uL (1.4-4.0); Lymphocytes % 3.6 % (21.3-54.2); Mean Corpuscular HGB Conc 32.6 GM/DL (32-36); Mean Platelet Volume 10.3 FL (9.6-12.0); Monocytes % 3.9 % (1.7-12.7); Platelet Count 530 T/CUMM (130-400); Red Blood Count 2.14 MC/CUMM (3.8-5.5); Red Cell Distribution Width 15.4 % (9.3-17.3); White Blood Count 20.7 T/CUMM (4-12)
[2021-01-20] MEDS ORDERED: ONDANSETRON 4 MG/2 ML VIAL IV PRN (16:36)
[2021-01-20 16:42] LABS: Lymphocytes 5 % (20-55); Segmented Neutrophils 92 % (50-85); Total Cells Counted 100
[2021-01-20] MEDS ORDERED: SODIUM CHLORIDE 0.9% 1,000 ML IV PRN (16:42)
[2021-01-20 16:43] LABS: Hypochromasia 1+
[2021-01-20 16:44] LABS: Anisocytosis 1+; Platelet Estimate Adequate; Poikilocytosis 1+; Polychromasia Few
[2021-01-20 16:45] LABS: Burr Cells Few; Schistocytes Few
[2021-01-20 16:55] LABS: INR 1.1; PT Patient Result 12.4 SECS (10.5-12.0)
[2021-01-20] MEDS: CIPROFLOXACIN INJ 400 MG/200 ML PREMIX IV SCH (17:57)
[2021-01-20] MEDS: SODIUM CHLORIDE 0.9% 1,000 ML IV SCH (17:58)
[2021-01-20 18:06] LABS: % Iron Saturation 12.4 % (18-50); Ferritin 66.7 ng/ml (8-252)
[2021-01-20] MEDS: metroNIDAZOLE INJ 500 MG/100 ML PREMIX IV SCH (20:57)
[2021-01-21 01:06] LABS: Hematocrit 22.4 VOL% (35.7-47.0); Hemoglobin 7.5 GM/DL (12.0-16.0)
[2021-01-21 01:07] LABS: Alanine Aminotransferase < 6 U/L (13-56); Alkaline Phosphatase 84 U/L (45-117); Aspartate Amino Transferase 16 U/L (0-37); Blood Urea Nitrogen 102 MG/DL (7-18); Calcium 7.2 MG/DL (8.5-10.1); Carbon Dioxide 17 MMOL/L (21-32); Estimated Glom Filtration Rate 14 ML/MIN; Glucose 102 MG/DL (74-106); Osmolality,Calculated 306.7 MOS/KG (273-304); Potassium 3.4 MMOL/L (3.5-5.1); Sodium 138 MMOL/L (136-145); Total Protein 5.7 G/DL (6.4-8.2)
[2021-01-21] MEDS ORDERED: SODIUM CHLORIDE 0.9% 1,000 ML IV PRN (01:10)
[2021-01-21] MEDS: SODIUM CHLORIDE 0.9% 1,000 ML IV SCH (04:02)
[2021-01-21] MEDS: PANTOPRAZOLE 40 MG VIAL IV SCH ×2 (05:17→16:20)
[2021-01-21] MEDS: metroNIDAZOLE INJ 500 MG/100 ML PREMIX IV SCH ×3 (05:17→20:37)
[2021-01-21 05:33] LABS: Basophils % 0.1 % (0.0-0.8); Hemoglobin 8.8 GM/DL (12.0-16.0); Immature Granulocytes % 1.1 %; Immature Granulocytes Absolute 0.19 #; Lymphocytes # 0.8 10*3/uL (1.4-4.0); Lymphocytes % 4.5 % (21.3-54.2); Mean Corpuscular HGB Conc 32.6 GM/DL (32-36); Mean Corpuscular Volume 87.4 FL (87-102); Mean Platelet Volume 10.2 FL (9.6-12.0); Monocytes % 6.9 % (1.7-12.7); Neutrophils % 87.4 % (38.7-73.9); Platelet Count 353 T/CUMM (130-400); Red Blood Count 3.09 MC/CUMM (3.8-5.5); Red Cell Distribution Width 14.9 % (9.3-17.3); White Blood Count 17.6 T/CUMM (4-12)
[2021-01-21 07:19] LABS: Lymphocytes 6 % (20-55); Segmented Neutrophils 90 % (50-85); Total Cells Counted 100
[2021-01-21 07:20] LABS: Hypochromasia Slight; Microcytosis Slight; Schistocytes Slight
[2021-01-21 07:21] LABS: Platelet Estimate Normal
[2021-01-21] MEDS: MORPHINE 4 MG/1 ML VIAL IV PRN ×2 (08:48→12:10)
[2021-01-21] MEDS: POTASSIUM CHLORIDE RIDER 10 MEQ/100 ML PREMIX IV SCH ×2 (08:50→09:54)
[2021-01-21] MEDS: METOPROLOL TARTRATE 5 MG/5 ML VIAL IV SCH ×4 (10:52→23:39)
[2021-01-21] MEDS: SODIUM CHLORIDE 23.4% CONC INJ 38.5 MEQ, SODIUM BICARB INJ 100 MEQ in STERILE WATER INJ... IV SCH ×2 (10:56→22:05)
[2021-01-21] MEDS: MAGNESIUM SULF RIDER 2 GM/50 ML PREMIX IV PRN ×2 (10:59→12:35)
[2021-01-21 12:10] LABS: Basophils % 0.1 % (0.0-0.8); Hematocrit 24.4 VOL% (35.7-47.0); Hemoglobin 8.4 GM/DL (12.0-16.0); Immature Granulocytes % 1.1 %; Lymphocytes # 0.7 10*3/uL (1.4-4.0); Lymphocytes % 4.1 % (21.3-54.2); Mean Corpuscular HGB Conc 34.4 GM/DL (32-36); Mean Corpuscular Volume 86.8 FL (87-102); Mean Platelet Volume 10.1 FL (9.6-12.0); Monocytes % 7.1 % (1.7-12.7); Neutrophils % 87.6 % (38.7-73.9); Platelet Count 315 T/CUMM (130-400); Red Blood Count 2.81 MC/CUMM (3.8-5.5)
[2021-01-21] MEDS: CIPROFLOXACIN INJ 400 MG/200 ML PREMIX IV SCH (16:20)
[2021-01-21 20:08] LABS: Basophils % 0.1 % (0.0-0.8); Eosinophils % 0.2 % (0.00-10.9); Hemoglobin 8.1 GM/DL (12.0-16.0); Immature Granulocytes % 0.8 %; Immature Granulocytes Absolute 0.13 #; Lymphocytes # 0.6 10*3/uL (1.4-4.0); Lymphocytes % 3.8 % (21.3-54.2); Mean Corpuscular HGB Conc 33.8 GM/DL (32-36); Mean Corpuscular Volume 86.3 FL (87-102); Mean Platelet Volume 9.9 FL (9.6-12.0); Monocytes % 6.9 % (1.7-12.7); Neutrophils % 88.2 % (38.7-73.9); Platelet Count 297 T/CUMM (130-400); Red Blood Count 2.78 MC/CUMM (3.8-5.5); Red Cell Distribution Width 15.4 % (9.3-17.3); White Blood Count 16.7 T/CUMM (4-12)
[2021-01-22] MEDS: PANTOPRAZOLE 40 MG VIAL IV SCH ×2 (04:04→17:50)
[2021-01-22] MEDS: metroNIDAZOLE INJ 500 MG/100 ML PREMIX IV SCH (04:04)
[2021-01-22] MEDS: ACETAMINOPHEN 325 MG TABLET PO PRN ×4 (04:15→22:47)
[2021-01-22] MEDS: METOPROLOL TARTRATE 5 MG/5 ML VIAL IV SCH (05:54)
[2021-01-22 06:26] LABS: Basophils % 0.1 % (0.0-0.8); Eosinophils # 0.1 10*3/uL (0.0-0.87); Hematocrit 24.8 VOL% (35.7-47.0); Hemoglobin 7.9 GM/DL (12.0-16.0); Immature Granulocytes % 0.5 %; Immature Granulocytes Absolute 0.06 #; Lymphocytes # 0.7 10*3/uL (1.4-4.0); Lymphocytes % 5.7 % (21.3-54.2); Mean Corpuscular HGB Conc 31.9 GM/DL (32-36); Mean Corpuscular Volume 91.2 FL (87-102); Mean Platelet Volume 10.4 FL (9.6-12.0); Neutrophils % 84.7 % (38.7-73.9); Platelet Count 272 T/CUMM (130-400); Red Blood Count 2.72 MC/CUMM (3.8-5.5); Red Cell Distribution Width 15.8 % (9.3-17.3); White Blood Count 11.5 T/CUMM (4-12)
[2021-01-22 06:44] LABS: Alanine Aminotransferase < 9 U/L (13-56); Albumin 1.8 G/DL (3.4-5.0); Alkaline Phosphatase 79 U/L (45-117); Aspartate Amino Transferase 30 U/L (0-37); Blood Urea Nitrogen 79 MG/DL (7-18); Calcium 7.2 MG/DL (8.5-10.1); Carbon Dioxide 21 MMOL/L (21-32); Estimated Glom Filtration Rate 17 ML/MIN; Glucose 82 MG/DL (74-106); Osmolality,Calculated 299.5 MOS/KG (273-304); Potassium 3.9 MMOL/L (3.5-5.1); Sodium 139 MMOL/L (136-145); Total Protein 5.4 G/DL (6.4-8.2)
[2021-01-22] MEDS: SODIUM CHLORIDE 23.4% CONC INJ 38.5 MEQ, SODIUM BICARB INJ 100 MEQ in STERILE WATER INJ... IV SCH ×2 (07:28→09:56)
[2021-01-22] MEDS: MAGNESIUM SULF RIDER 2 GM/50 ML PREMIX IV PRN (11:26)
[2021-01-22] MEDS: ROSUVASTATIN 20 MG TABLET PO SCH (21:33)
[2021-01-22] MEDS: METOPROLOL TARTRATE 25 MG TABLET PO SCH (21:34)
[2021-01-23] MEDS: ACETAMINOPHEN 325 MG TABLET PO PRN (02:31)
[2021-01-23 05:19] LABS: Basophils % 0.1 % (0.0-0.8); Eosinophils # 0.1 10*3/uL (0.0-0.87); Hematocrit 20.9 VOL% (35.7-47.0); Hemoglobin 6.7 GM/DL (12.0-16.0); Immature Granulocytes % 0.7 %; Immature Granulocytes Absolute 0.08 #; Lymphocytes # 0.8 10*3/uL (1.4-4.0); Lymphocytes % 6.9 % (21.3-54.2); Mean Corpuscular HGB Conc 32.1 GM/DL (32-36); Mean Corpuscular Volume 90.9 FL (87-102); Mean Platelet Volume 10.2 FL (9.6-12.0); Monocytes % 8.8 % (1.7-12.7); Neutrophils % 82.5 % (38.7-73.9); Platelet Count 290 T/CUMM (130-400); Red Cell Distribution Width 15.9 % (9.3-17.3); White Blood Count 11.1 T/CUMM (4-12)
[2021-01-23] MEDS: PANTOPRAZOLE 40 MG VIAL IV SCH ×2 (05:41→17:00)
[2021-01-23 05:47] LABS: Calcium 7.5 MG/DL (8.5-10.1); Osmolality,Calculated 302.5 MOS/KG (273-304); Potassium 3.5 MMOL/L (3.5-5.1)
[2021-01-23 05:52] LABS: Alanine Aminotransferase < 6 U/L (13-56); Albumin 1.9 G/DL (3.4-5.0); Alkaline Phosphatase 80 U/L (45-117); Aspartate Amino Transferase 14 U/L (0-37); Blood Urea Nitrogen 81 MG/DL (7-18); Calcium 7.7 MG/DL (8.5-10.1); Carbon Dioxide 27 MMOL/L (21-32); Estimated Glom Filtration Rate 18 ML/MIN; Glucose 101 MG/DL (74-106); Osmolality,Calculated 300.5 MOS/KG (273-304); Potassium 3.2 MMOL/L (3.5-5.1); Sodium 139 MMOL/L (136-145); Total Protein 5.1 G/DL (6.4-8.2)
[2021-01-23] MEDS ORDERED: SODIUM CHLORIDE 0.9% 1,000 ML IV PRN (10:05)
[2021-01-23] MEDS: METOPROLOL TARTRATE 25 MG TABLET PO SCH ×2 (14:52→20:52)
[2021-01-23] MEDS ORDERED: propofoL 200 MG/20 ML VIAL IV ONE (15:30)
[2021-01-23] MEDS ORDERED: ETOMIDATE 20 MG/10 ML VIAL IV ONE (15:30)
[2021-01-23] MEDS ORDERED: LIDOCAINE 2% 5 ML VIAL ONE (15:30)
[2021-01-23] MEDS: ROSUVASTATIN 20 MG TABLET PO SCH (20:52)
[2021-01-24] MEDS: PANTOPRAZOLE 40 MG VIAL IV SCH (06:22)
[2021-01-24] MEDS: METOPROLOL TARTRATE 25 MG TABLET PO SCH ×2 (09:14→21:12)
[2021-01-24 09:26] LABS: Basophils % 0.2 % (0.0-0.8); Eosinophils # 0.1 10*3/uL (0.0-0.87); Hematocrit 21.9 VOL% (35.7-47.0); Hemoglobin 6.8 GM/DL (12.0-16.0); Immature Granulocytes % 0.6 %; Immature Granulocytes Absolute 0.06 #; Lymphocytes # 0.8 10*3/uL (1.4-4.0); Lymphocytes % 7.1 % (21.3-54.2); Mean Corpuscular HGB Conc 31.1 GM/DL (32-36); Monocytes % 8.2 % (1.7-12.7); Neutrophils % 82.9 % (38.7-73.9); Platelet Count 242 T/CUMM (130-400); Red Blood Count 2.33 MC/CUMM (3.8-5.5); Red Cell Distribution Width 16.4 % (9.3-17.3); White Blood Count 10.6 T/CUMM (4-12)
[2021-01-24] MEDS ORDERED: SODIUM CHLORIDE 0.9% 1,000 ML IV PRN ×2 (15:09→22:35)
[2021-01-24] MEDS: SUCRALFATE 1 GM/10 ML UDCUP PO SCH (16:12)
[2021-01-24] MEDS: PANTOPRAZOLE 40 MG TABLET PO SCH (17:32)
[2021-01-24] MEDS: ROSUVASTATIN 20 MG TABLET PO SCH (21:12)
[2021-01-24 21:38] LABS: Hematocrit 21.2 VOL% (35.7-47.0); Hemoglobin 6.9 GM/DL (12.0-16.0)
[2021-01-25 05:47] LABS: Basophils % 0.3 % (0.0-0.8); Eosinophils # 0.2 10*3/uL (0.0-0.87); Hematocrit 22.8 VOL% (35.7-47.0); Hemoglobin 7.4 GM/DL (12.0-16.0); Immature Granulocytes % 0.6 %; Immature Granulocytes Absolute 0.06 #; Lymphocytes % 9.4 % (21.3-54.2); Mean Corpuscular HGB Conc 32.5 GM/DL (32-36); Mean Corpuscular Volume 92.3 FL (87-102); Mean Platelet Volume 10.1 FL (9.6-12.0); Monocytes % 8.7 % (1.7-12.7); Platelet Count 200 T/CUMM (130-400); Red Blood Count 2.47 MC/CUMM (3.8-5.5); Red Cell Distribution Width 16.3 % (9.3-17.3); White Blood Count 10.1 T/CUMM (4-12)
[2021-01-25] MEDS: PANTOPRAZOLE 40 MG TABLET PO SCH (06:01)
[2021-01-25 08:50] LABS: Calcium 7.3 MG/DL (8.5-10.1); Osmolality,Calculated 308.3 MOS/KG (273-304)
[2021-01-25] MEDS: METOPROLOL TARTRATE 25 MG TABLET PO SCH ×2 (09:35→22:20)
[2021-01-25] MEDS: SUCRALFATE 1 GM/10 ML UDCUP PO SCH ×2 (09:35→16:58)
[2021-01-25] MEDS: MAGNESIUM SULF RIDER 2 GM/50 ML PREMIX IV PRN (09:36)
[2021-01-25] MEDS ORDERED: PANTOPRAZOLE 40 MG TABLET PO SCH (18:30)
[2021-01-25] MEDS ORDERED: SODIUM CHLORIDE 0.9% 1,000 ML IV PRN (18:50)
[2021-01-25] MEDS ORDERED: LACTATED RINGERS 1,000 ML IV ONE (19:20)
[2021-01-25] MEDS ORDERED: LIDOCAINE 2% 5 ML VIAL ONE (21:26)
[2021-01-25] MEDS ORDERED: PHENYLEPHRINE 1 MG/10 ML SYRINGE IV ONE (21:27)
[2021-01-25] MEDS ORDERED: PHENYLEPHRINE DRIP 20 MG/250 ML PREMIX IV ONE (21:27)
[2021-01-25] MEDS ORDERED: ETOMIDATE 40 MG/20 ML VIAL IV ONE (21:27)
[2021-01-25] MEDS ORDERED: propofoL 200 MG/20 ML VIAL IV ONE (21:27)
[2021-01-25 21:35] LABS: Hematocrit 24.9 VOL% (35.7-47.0); Hemoglobin 7.9 GM/DL (12.0-16.0)
[2021-01-25] MEDS ORDERED: PANTOPRAZOLE INJ 80 MG in SODIUM CHLORIDE 0.9% 100 ML IV ONE (21:38)
[2021-01-25] MEDS: ROSUVASTATIN 20 MG TABLET PO SCH (22:20)
[2021-01-25] MEDS: PANTOPRAZOLE INJ 200 MG in SODIUM CHLORIDE 0.9% 250 ML IV SCH (23:15)
[2021-01-26 00:09] LABS: Hemoglobin 9.1 GM/DL (12.0-16.0)
[2021-01-26 04:28] LABS: Basophils % 0.2 % (0.0-0.8); Eosinophils % 0.2 % (0.00-10.9); Hematocrit 26.7 VOL% (35.7-47.0); Hemoglobin 8.6 GM/DL (12.0-16.0); Immature Granulocytes Absolute 0.11 #; Lymphocytes # 0.9 10*3/uL (1.4-4.0); Lymphocytes % 7.5 % (21.3-54.2); Mean Corpuscular HGB Conc 32.2 GM/DL (32-36); Mean Corpuscular Volume 90.5 FL (87-102); Mean Platelet Volume 10.7 FL (9.6-12.0); Monocytes % 7.9 % (1.7-12.7); Neutrophils % 83.2 % (38.7-73.9); Platelet Count 147 T/CUMM (130-400); Red Blood Count 2.95 MC/CUMM (3.8-5.5); Red Cell Distribution Width 15.7 % (9.3-17.3); White Blood Count 11.5 T/CUMM (4-12)
[2021-01-26 05:06] LABS: Calcium 7.6 MG/DL (8.5-10.1); Osmolality,Calculated 316.3 MOS/KG (273-304); Potassium 3.8 MMOL/L (3.5-5.1)
[2021-01-26] MEDS: METOPROLOL TARTRATE 25 MG TABLET PO SCH ×2 (08:02→21:56)
[2021-01-26] MEDS: SUCRALFATE 1 GM/10 ML UDCUP PO SCH ×2 (08:02→17:24)
[2021-01-26] MEDS: ACETAMINOPHEN 325 MG TABLET PO PRN (17:34)
[2021-01-26] MEDS: ROSUVASTATIN 20 MG TABLET PO SCH (21:55)
[2021-01-27] MEDS: PANTOPRAZOLE INJ 200 MG in SODIUM CHLORIDE 0.9% 250 ML IV SCH (02:25)
[2021-01-27] MEDS: ACETAMINOPHEN 325 MG TABLET PO PRN (03:01)
[2021-01-27 04:17] LABS: Basophils % 0.2 % (0.0-0.8); Eosinophils # 0.2 10*3/uL (0.0-0.87); Eosinophils % 1.8 % (0.00-10.9); Immature Granulocytes % 0.6 %; Immature Granulocytes Absolute 0.07 #; Lymphocytes # 0.6 10*3/uL (1.4-4.0); Lymphocytes % 5.2 % (21.3-54.2); Mean Corpuscular HGB Conc 31.3 GM/DL (32-36); Mean Corpuscular Volume 93.1 FL (87-102); Mean Platelet Volume 11.3 FL (9.6-12.0); Neutrophils % 84.2 % (38.7-73.9); Platelet Count 156 T/CUMM (130-400); Red Blood Count 2.47 MC/CUMM (3.8-5.5); Red Cell Distribution Width 16.5 % (9.3-17.3); White Blood Count 10.8 T/CUMM (4-12)
[2021-01-27 04:18] LABS: Calcium 7.7 MG/DL (8.5-10.1); Osmolality,Calculated 310.1 MOS/KG (273-304); Potassium 3.9 MMOL/L (3.5-5.1)
[2021-01-27 04:19] LABS: Hemoglobin 7.2 GM/DL (12.0-16.0)
[2021-01-27] MEDS ORDERED: SODIUM CHLORIDE 0.9% 1,000 ML IV PRN ×2 (04:44→05:34)
[2021-01-27] MEDS: METOPROLOL TARTRATE 25 MG TABLET PO SCH ×2 (09:01→20:00)
[2021-01-27] MEDS: SUCRALFATE 1 GM/10 ML UDCUP PO SCH ×2 (09:01→17:01)
[2021-01-27] MEDS ORDERED: FUROSEMIDE 40 MG/4 ML VIAL IV ONE (09:40)
[2021-01-27] MEDS: CLOTRIMAZOLE/BETAMETHASONE CREAM 15 GM TUBE TOP SCH ×2 (12:52→20:00)
[2021-01-27] MEDS: ROSUVASTATIN 20 MG TABLET PO SCH (20:00)
[2021-01-28] MEDS: PANTOPRAZOLE INJ 200 MG in SODIUM CHLORIDE 0.9% 250 ML IV SCH (01:27)
[2021-01-28 05:02] LABS: Basophils % 0.2 % (0.0-0.8); Eosinophils # 0.2 10*3/uL (0.0-0.87); Eosinophils % 2.1 % (0.00-10.9); Hematocrit 30.3 VOL% (35.7-47.0); Hemoglobin 9.7 GM/DL (12.0-16.0); Immature Granulocytes % 0.5 %; Immature Granulocytes Absolute 0.05 #; Lymphocytes # 0.5 10*3/uL (1.4-4.0); Lymphocytes % 5.2 % (21.3-54.2); Mean Corpuscular Volume 91.8 FL (87-102); Monocytes % 8.6 % (1.7-12.7); Neutrophils % 83.4 % (38.7-73.9); Platelet Count 171 T/CUMM (130-400); Red Cell Distribution Width 15.7 % (9.3-17.3); White Blood Count 10.5 T/CUMM (4-12)
[2021-01-28] MEDS ORDERED: FUROSEMIDE 40 MG/4 ML VIAL IV ONE (05:13)
[2021-01-28] MEDS: MAGNESIUM SULF RIDER 2 GM/50 ML PREMIX IV PRN (05:15)
[2021-01-28 05:18] LABS: Calcium 7.3 MG/DL (8.5-10.1); Potassium 3.8 MMOL/L (3.5-5.1)
[2021-01-28] MEDS ORDERED: MAGNESIUM SULF RIDER 2 GM/50 ML PREMIX IV ONE (07:53)
[2021-01-28] MEDS: SUCRALFATE 1 GM/10 ML UDCUP PO SCH ×2 (09:09→17:02)
[2021-01-28] MEDS: COLESTIPOL 1 GM TABLET PO SCH ×2 (09:09→22:11)
[2021-01-28] MEDS: METOPROLOL TARTRATE 25 MG TABLET PO SCH ×2 (09:10→22:11)
[2021-01-28] MEDS: FUROSEMIDE 40 MG TABLET PO SCH (09:10)
[2021-01-28] MEDS: PANTOPRAZOLE 40 MG TABLET PO SCH ×2 (09:10→22:11)
[2021-01-28] MEDS: calcitrioL 0.25 MCG CAPSULE PO SCH (09:11)
[2021-01-28] MEDS ORDERED: NITROGLYCERIN SL 0.4 MG TABLET SL PRN (12:14)
[2021-01-28] MEDS: CLOTRIMAZOLE/BETAMETHASONE CREAM 15 GM TUBE TOP SCH ×2 (12:25→21:45)
[2021-01-28] MEDS: ACETAMINOPHEN 325 MG TABLET PO PRN (18:34)
[2021-01-28] MEDS ORDERED: CALCIUM CARBONATE PO SCH (21:00)
[2021-01-28] MEDS: ROSUVASTATIN 20 MG TABLET PO SCH (22:11)
[2021-01-29] MEDS: ACETAMINOPHEN 325 MG TABLET PO PRN (01:06)
[2021-01-29 07:30] LABS: Basophils % 0.2 % (0.0-0.8); Eosinophils # 0.3 10*3/uL (0.0-0.87); Hematocrit 32.5 VOL% (35.7-47.0); Hemoglobin 10.6 GM/DL (12.0-16.0); Immature Granulocytes % 0.7 %; Immature Granulocytes Absolute 0.07 #; Lymphocytes # 0.6 10*3/uL (1.4-4.0); Lymphocytes % 6.1 % (21.3-54.2); Mean Corpuscular HGB Conc 32.6 GM/DL (32-36); Mean Corpuscular Volume 90.5 FL (87-102); Mean Platelet Volume 10.9 FL (9.6-12.0); Monocytes % 9.7 % (1.7-12.7); Neutrophils % 80.3 % (38.7-73.9); Platelet Count 232 T/CUMM (130-400); Red Blood Count 3.59 MC/CUMM (3.8-5.5); Red Cell Distribution Width 15.7 % (9.3-17.3)
[2021-01-29 07:49] LABS: Calcium 7.8 MG/DL (8.5-10.1); Osmolality,Calculated 297.5 MOS/KG (273-304); Potassium 3.6 MMOL/L (3.5-5.1)
[2021-01-29] MEDS: PANTOPRAZOLE 40 MG TABLET PO SCH ×2 (08:45→21:28)
[2021-01-29] MEDS: METOPROLOL TARTRATE 25 MG TABLET PO SCH ×2 (08:45→21:28)
[2021-01-29] MEDS: CLOTRIMAZOLE/BETAMETHASONE CREAM 15 GM TUBE TOP SCH ×2 (08:46→21:28)
[2021-01-29] MEDS: FUROSEMIDE 40 MG TABLET PO SCH ×2 (08:46→08:52)
[2021-01-29] MEDS: SUCRALFATE 1 GM/10 ML UDCUP PO SCH ×2 (08:46→15:35)
[2021-01-29] MEDS: COLESTIPOL 1 GM TABLET PO SCH ×2 (08:46→21:28)
[2021-01-29] MEDS: calcitrioL 0.25 MCG CAPSULE PO SCH (08:46)
[2021-01-29] MEDS ORDERED: CALCIUM CARBONATE PO SCH (21:00)
[2021-01-29] MEDS: ROSUVASTATIN 20 MG TABLET PO SCH (21:28)
[2021-01-29] MEDS ORDERED: MELATONIN 3 MG TABLET PO PRN (23:23)
[2021-01-30 05:58] LABS: Basophils % 0.1 % (0.0-0.8); Eosinophils # 0.3 10*3/uL (0.0-0.87); Eosinophils % 3.7 % (0.00-10.9); Hemoglobin 9.8 GM/DL (12.0-16.0); Immature Granulocytes % 0.7 %; Immature Granulocytes Absolute 0.05 #; Lymphocytes # 0.6 10*3/uL (1.4-4.0); Mean Corpuscular HGB Conc 32.7 GM/DL (32-36); Mean Corpuscular Volume 91.7 FL (87-102); Mean Platelet Volume 10.6 FL (9.6-12.0); Monocytes % 13.8 % (1.7-12.7); Neutrophils % 72.7 % (38.7-73.9); Platelet Count 228 T/CUMM (130-400); Red Blood Count 3.27 MC/CUMM (3.8-5.5); Red Cell Distribution Width 15.9 % (9.3-17.3); White Blood Count 7.1 T/CUMM (4-12)
[2021-01-30 06:06] LABS: Calcium 7.8 MG/DL (8.5-10.1); Osmolality,Calculated 291.7 MOS/KG (273-304); Potassium 3.9 MMOL/L (3.5-5.1)
[2021-01-30] MEDS: SUCRALFATE 1 GM/10 ML UDCUP PO SCH (08:28)
[2021-01-30] MEDS: COLESTIPOL 1 GM TABLET PO SCH (08:28)
[2021-01-30] MEDS: PANTOPRAZOLE 40 MG TABLET PO SCH ×2 (08:29→09:50)
[2021-01-30] MEDS: calcitrioL 0.25 MCG CAPSULE PO SCH ×2 (08:29→09:49)
[2021-01-30] MEDS: METOPROLOL TARTRATE 25 MG TABLET PO SCH ×2 (08:30→09:49)
[2021-01-30] MEDS: FUROSEMIDE 40 MG TABLET PO SCH ×2 (08:41→09:49)
[2021-01-30] MEDS: CLOTRIMAZOLE/BETAMETHASONE CREAM 15 GM TUBE TOP SCH (09:49)
[2021-01-30 12:35] VITALS: BP 122/53
[2021-01-30] MEDS ORDERED: PANTOPRAZOLE 40 MG TABLET PO SCH (18:30)
[2021-01-31 17:16] LABS: H pylori Specimen source STOOL; Helicobacter pylori Result Not Detected
== END 2021-01-30 14:29 | disposition home health service (06) | DRG 377 ==
LOC: N.ED 13:36 → SUATTDRO 16:36 → N.EDINP 16:36 → N.CC 17:25 → N.TELEN 01-22 11:45 → N.ICU 01-25 19:32 → N.5E 01-28 12:50
PROVIDERS: ADMIT Family Medicine; ATTEND Internal Medicine

== ENCOUNTER 2021-08-15 21:30 | Inpatient (IN) ==
[2021-08-15] MEDS ORDERED: PANTOPRAZOLE 40 MG VIAL IV STA (22:00)
[2021-08-15] MEDS ORDERED: ONDANSETRON 4 MG/2 ML VIAL IV STA (22:00)
[2021-08-15 23:01] LABS: Basophils % 0.1 % (0.0-0.8); Eosinophils % 0.6 % (0.00-10.9); Hematocrit 24.2 VOL% (35.7-47.0); Hemoglobin 7.8 GM/DL (12.0-16.0); Immature Granulocytes % 0.6 %; Immature Granulocytes Absolute 0.04 #; Lymphocytes # 0.7 10*3/uL (1.4-4.0); Lymphocytes % 10.7 % (21.3-54.2); Mean Corpuscular HGB Conc 32.2 GM/DL (32-36); Mean Corpuscular Volume 87.7 FL (87-102); Mean Platelet Volume 11.8 FL (9.6-12.0); Monocytes % 7.2 % (1.7-12.7); Neutrophils % 80.8 % (38.7-73.9); Platelet Count 212 T/CUMM (130-400); Red Blood Count 2.76 MC/CUMM (3.8-5.5); Red Cell Distribution Width 16.1 % (9.3-17.3); White Blood Count 6.8 T/CUMM (4-12)
[2021-08-15 23:11] LABS: INR 1.1
[2021-08-15 23:16] LABS: Alanine Aminotransferase < 6 U/L (13-56); Albumin 2.5 G/DL (3.4-5.0); Alkaline Phosphatase 71 U/L (45-117); Aspartate Amino Transferase 12 U/L (0-37); Blood Urea Nitrogen 80 MG/DL (7-18); Calcium 8.5 MG/DL (8.5-10.1); Carbon Dioxide 23 MMOL/L (21-32); Estimated Glom Filtration Rate 17 ML/MIN; Glucose 85 MG/DL (74-106); Potassium 5.3 MMOL/L (3.5-5.1); Sodium 143 MMOL/L (136-145); Total Protein 5.8 G/DL (6.4-8.2)
[2021-08-15 23:19] LABS: Bilirubin,Urine Negative (Negative); Blood, Urine Moderate mg/dL (Negative); Glucose,Urine (UA) Negative (Negative); Hyaline Casts,Urine 3 /LPF (0-3); Ketones,Urine Negative (Negative); Nitrite,Urine Negative (Negative); Protein,Urine Negative; RBC,Urine <1 /HPF (0-4); Squamous Epithelial Cell,Urine Occasional /HPF (0-10); Urine Appearance CLEAR (Clear); Urine Color Straw (Yellow); Urine Specific Gravity 1.011 (1.001-1.035); Urine Urobilinogen < 2.0 EU/DL (<2.0)
[2021-08-16] MEDS ORDERED: GLUCAGON 1 MG VIAL IM PRN (01:10)
[2021-08-16] MEDS ORDERED: ACETAMINOPHEN 325 MG TABLET PO PRN (01:13)
[2021-08-16] MEDS ORDERED: MELATONIN 3 MG TABLET PO PRN (01:17)
[2021-08-16] MEDS ORDERED: DEXTROSE 50% 25 GM/50 ML SYRINGE IV PRN (01:21)
[2021-08-16] MEDS ORDERED: AZITHROMYCIN INJ 500 MG in SODIUM CHLORIDE 0.9% 250 ML IV ONE (02:00)
[2021-08-16 05:32] LABS: Basophils % 0.2 % (0.0-0.8); Eosinophils # 0.1 10*3/uL (0.0-0.87); Hematocrit 22.4 VOL% (35.7-47.0); Hemoglobin 7.3 GM/DL (12.0-16.0); Immature Granulocytes % 0.3 %; Immature Granulocytes Absolute 0.02 #; Lymphocytes # 0.8 10*3/uL (1.4-4.0); Lymphocytes % 13.5 % (21.3-54.2); Mean Corpuscular HGB Conc 32.6 GM/DL (32-36); Mean Corpuscular Volume 88.2 FL (87-102); Mean Platelet Volume 11.2 FL (9.6-12.0); Monocytes % 7.6 % (1.7-12.7); Neutrophils % 77.4 % (38.7-73.9); Platelet Count 188 T/CUMM (130-400); Red Blood Count 2.54 MC/CUMM (3.8-5.5); Red Cell Distribution Width 16.5 % (9.3-17.3); White Blood Count 5.9 T/CUMM (4-12)
[2021-08-16 05:40] LABS: INR 1.1; PT Patient Result 11.7 SECS (10.5-12.0)
[2021-08-16 05:54] LABS: Alanine Aminotransferase < 9 U/L (13-56); Albumin 2.2 G/DL (3.4-5.0); Alkaline Phosphatase 64 U/L (45-117); Aspartate Amino Transferase 15 U/L (0-37); Blood Urea Nitrogen 78 MG/DL (7-18); Calcium 8.2 MG/DL (8.5-10.1); Carbon Dioxide 22 MMOL/L (21-32); Estimated Glom Filtration Rate 17 ML/MIN; Glucose 80 MG/DL (74-106); Osmolality,Calculated 307.8 MOS/KG (273-304); Potassium 5.1 MMOL/L (3.5-5.1); Sodium 144 MMOL/L (136-145); Total Protein 5.4 G/DL (6.4-8.2)
[2021-08-16] MEDS ORDERED: SODIUM CHLORIDE 0.9% 1,000 ML IV PRN (08:50)
[2021-08-16] MEDS: FUROSEMIDE 40 MG TABLET PO SCH (08:52)
[2021-08-16] MEDS: ASCORBIC ACID 500 MG TABLET PO SCH ×2 (08:52→22:17)
[2021-08-16] MEDS: CHOLECALCIFEROL 1,000 UNIT TABLET PO SCH (08:59)
[2021-08-16] MEDS ORDERED: PANTOPRAZOLE 40 MG VIAL IV SCH (09:00)
[2021-08-16] MEDS: ZINC GLUCONATE 50 MG TABLET PO SCH (09:10)
[2021-08-16 09:41] LABS: Hematocrit 21.1 VOL% (35.7-47.0); Hemoglobin 6.8 GM/DL (12.0-16.0)
[2021-08-16] MEDS: METOPROLOL TARTRATE 25 MG TABLET PO SCH ×2 (12:40→22:17)
[2021-08-16] MEDS: cefTRIAXone 1,000 MG in SODIUM CHLORIDE 0.9% 100 ML IV SCH (13:01)
[2021-08-16] MEDS ORDERED: PANTOPRAZOLE INJ 80 MG in SODIUM CHLORIDE 0.9% 100 ML IV ONE (14:53)
[2021-08-16 18:46] LABS: Hematocrit 26.1 VOL% (35.7-47.0)
[2021-08-16 18:47] LABS: Hemoglobin 8.2 GM/DL (12.0-16.0)
[2021-08-16] MEDS: ROSUVASTATIN 20 MG TABLET PO SCH (22:16)
[2021-08-16 22:31] LABS: Hematocrit 27.8 VOL% (35.7-47.0); Hemoglobin 8.8 GM/DL (12.0-16.0)
[2021-08-16] MEDS: PANTOPRAZOLE INJ 200 MG in SODIUM CHLORIDE 0.9% 250 ML IV SCH (23:30)
[2021-08-17 05:58] LABS: PT Patient Result 11.6 SECS (10.5-12.0)
[2021-08-17] MEDS ORDERED: DEXTROSE 10% 250 ML BAG IV PRN (09:00)
[2021-08-17] MEDS: CHOLECALCIFEROL 1,000 UNIT TABLET PO SCH (09:17)
[2021-08-17] MEDS: cefTRIAXone 1,000 MG in SODIUM CHLORIDE 0.9% 100 ML IV SCH (09:17)
[2021-08-17] MEDS: FUROSEMIDE 40 MG TABLET PO SCH (09:17)
[2021-08-17] MEDS: ZINC GLUCONATE 50 MG TABLET PO SCH (09:18)
[2021-08-17] MEDS: AZITHROMYCIN 250 MG TABLET PO SCH (09:18)
[2021-08-17] MEDS: METOPROLOL TARTRATE 25 MG TABLET PO SCH ×2 (09:18→21:35)
[2021-08-17] MEDS: ASCORBIC ACID 500 MG TABLET PO SCH ×2 (09:18→21:35)
[2021-08-17 10:41] LABS: Basophils % 0.2 % (0.0-0.8); Eosinophils # 0.1 10*3/uL (0.0-0.87); Eosinophils % 1.3 % (0.00-10.9); Hematocrit 28.5 VOL% (35.7-47.0); Hemoglobin 9.1 GM/DL (12.0-16.0); Immature Granulocytes % 0.7 %; Immature Granulocytes Absolute 0.04 #; Lymphocytes # 0.6 10*3/uL (1.4-4.0); Lymphocytes % 10.1 % (21.3-54.2); Mean Corpuscular HGB Conc 31.9 GM/DL (32-36); Mean Corpuscular Volume 89.1 FL (87-102); Mean Platelet Volume 11.6 FL (9.6-12.0); Monocytes % 9.1 % (1.7-12.7); Neutrophils % 78.6 % (38.7-73.9); Platelet Count 191 T/CUMM (130-400); Red Cell Distribution Width 16.9 % (9.3-17.3); White Blood Count 5.5 T/CUMM (4-12)
[2021-08-17 10:56] LABS: Calcium 8.2 MG/DL (8.5-10.1); Osmolality,Calculated 305.8 MOS/KG (273-304); Potassium 4.7 MMOL/L (3.5-5.1)
[2021-08-17] MEDS ORDERED: NITROGLYCERIN SL 0.4 MG TABLET SL PRN (11:59)
[2021-08-17] MEDS ORDERED: MAGNESIUM SULF RIDER 1 GM/100 ML PREMIX IV ONE (12:00)
[2021-08-17] MEDS: PANTOPRAZOLE INJ 200 MG in SODIUM CHLORIDE 0.9% 250 ML IV SCH (16:29)
[2021-08-17] MEDS ORDERED: MAGNESIUM OXIDE 400 MG TABLET PO SCH (21:00)
[2021-08-17] MEDS: ROSUVASTATIN 20 MG TABLET PO SCH (21:35)
[2021-08-17] MEDS: POTASSIUM CHLORIDE 20 MEQ TABLET PO SCH (21:35)
[2021-08-17] MEDS: hydrALAZINE 25 MG TABLET PO SCH (21:35)
[2021-08-17] MEDS: COLESTIPOL 1 GM TABLET PO SCH (21:36)
[2021-08-17] MEDS: ONDANSETRON 4 MG/2 ML VIAL IV PRN (23:23)
[2021-08-18 05:14] LABS: Basophils % 0.2 % (0.0-0.8); Eosinophils # 0.1 10*3/uL (0.0-0.87); Eosinophils % 1.1 % (0.00-10.9); Hemoglobin 9.8 GM/DL (12.0-16.0); Immature Granulocytes % 0.5 %; Immature Granulocytes Absolute 0.03 #; Lymphocytes # 0.6 10*3/uL (1.4-4.0); Lymphocytes % 10.1 % (21.3-54.2); Mean Corpuscular HGB Conc 31.6 GM/DL (32-36); Mean Corpuscular Volume 89.3 FL (87-102); Mean Platelet Volume 11.4 FL (9.6-12.0); Monocytes % 10.8 % (1.7-12.7); Neutrophils % 77.3 % (38.7-73.9); Platelet Count 207 T/CUMM (130-400); Red Blood Count 3.47 MC/CUMM (3.8-5.5); Red Cell Distribution Width 16.7 % (9.3-17.3); White Blood Count 5.5 T/CUMM (4-12)
[2021-08-18 05:18] LABS: INR 1.1; PT Patient Result 11.8 SECS (10.5-12.0)
[2021-08-18 05:31] LABS: Calcium 8.2 MG/DL (8.5-10.1); Osmolality,Calculated 304.7 MOS/KG (273-304); Potassium 4.8 MMOL/L (3.5-5.1)
[2021-08-18 05:34] LABS: Ferritin 52.5 ng/mL (8-252)
[2021-08-18] MEDS ORDERED: MAGNESIUM OXIDE 400 MG TABLET PO SCH (09:00)
[2021-08-18] MEDS ORDERED: FERROUS SULFATE 325 MG TABLET PO SCH (09:00)
[2021-08-18] MEDS: ASCORBIC ACID 500 MG TABLET PO SCH (10:01)
[2021-08-18] MEDS: CHOLECALCIFEROL 1,000 UNIT TABLET PO SCH (10:02)
[2021-08-18] MEDS: METOPROLOL TARTRATE 25 MG TABLET PO SCH (10:02)
[2021-08-18] MEDS: AZITHROMYCIN 250 MG TABLET PO SCH (10:02)
[2021-08-18] MEDS: FUROSEMIDE 40 MG TABLET PO SCH (10:02)
[2021-08-18] MEDS: POTASSIUM CHLORIDE 20 MEQ TABLET PO SCH (10:02)
[2021-08-18] MEDS: COLESTIPOL 1 GM TABLET PO SCH (10:03)
[2021-08-18] MEDS: cefTRIAXone 1,000 MG in SODIUM CHLORIDE 0.9% 100 ML IV SCH (10:03)
[2021-08-18] MEDS: hydrALAZINE 25 MG TABLET PO SCH (10:03)
[2021-08-18] MEDS: ONDANSETRON 4 MG/2 ML VIAL IV PRN (11:49)
[2021-08-18] MEDS ORDERED: ZINC GLUCONATE 50 MG TABLET PO SCH (12:00)
[2021-08-18 12:08] VITALS: BP 139/75
[2021-08-19] MEDS ORDERED: PANTOPRAZOLE 40 MG TABLET PO SCH (09:00)
== END 2021-08-18 15:29 | disposition home or self-care (01) | DRG 377 ==
LOC: N.ED 21:30 → N.EDINP 08-16 06:51 → SUATTDRO 08-16 06:51 → N.3E 08-16 18:05
PROVIDERS: ADMIT Internal Medicine; ATTEND Internal Medicine